=== PATIENT | male | born 2000 | race Caucasian/White ===

== ENCOUNTER 2020-09-27 00:13 | Emergency (ER) | payer SELFPAY ==
[2020-09-27 00:15] VITALS: BP 118/65; PULSE 96; RESP 16; TEMP 36.5; O2SAT 97; BMI 18.3
--- NOTE | 2020-09-27 00:25 | EX.ED.DYSGE1 ---
HPI History of Present Illness Chief Complaint: Foreign Body Informant: patient Onset/Context/Timing Onset: Hours (2) Context: Gradual Onset (after finished vomiting) Timing: Continuous Quality: FB sensation that is making it hard to breathe a little Location: right throat, above my gibson apple Current Severity: Moderate Maximum Severity: Moderate Worsened by: nothing Relieved by: nothing Associated Symptoms Associated Symptoms: none other than a little sob due to throat Narrative Narrative: Patient states he had a couple meals today, ate them without any difficulty, then about 2 hours ago he had about a 10-minute episode of profuse vomiting it was nonbilious nonbloody. Shortly after he finished vomiting, he felt better except he noticed foreign body sensation in his right throat that has persisted and he states he feels a little short of breath from it. He does not have any chest symptoms in his chest or his abdomen now. He does not feel nauseated anymore. Denies any abdominal pain when he was vomiting, no fevers or chills. He suspects it was due to something that he ate. He can swallow liquids now without any difficulty and he can manipulate the sensation when he is swallowing. PFSH PFSH no medical history Home Medications NK 09/27/20 [History Last Taken Unknown] Allergy/AdvReac Type Severity Reaction Status Date / Time No Known Allergies Allergy Verified 09/27/20 00:18 Surgical History History of appendectomy Social History Smoking Status: Current every day smoker tobacco type: cigarettes ROS ROS ED Constitutional Constitutional ED: Denies chills or fever(s) Eyes Eyes: Denies change in vision or diplopia ENT ENT ED: Reports as per HPI and sore throat; Denies rhinorrhea Cardiovascular Cardiovascular: Denies chest pain or palpitations Respiratory/Chest Respiratory/Chest: Denies cough Gastrointestinal Gastrointestinal: Denies abdominal pain, diarrhea, nausea or vomiting Genitourinary Genitourinary ED: Denies dysuria or hematuria Musculoskeletal Musculoskeletal: Denies back pain or neck pain Integumentary Denies abscess or rash Neurologic Neurologic: Denies headache(s), paresthesias or weakness Psychiatric Psychiatric: Denies anxiety or suicidal thoughts EXAM Physical Exam Const Vital Signs: 09/27/20 00:15 09/27/20 00:17 Temperature 97.7 F L Temperature Source Temporal Pulse Rate 96 Respiratory Rate 16 Respiratory Effort Normal Respiratory Pattern Normal Blood Pressure 118/65 Blood Pressure Mean 82 Pulse Ox 97 Oxygen Delivery Method Room Air Positive well nourished and well developed General Appearance ED: well developed and NAD HEENT Reports moist mucous membranes HEENT Narrative: No trismus. Posterior oropharynx mildly erythematous, there is prominence of the right palate teen tonsil and tonsillar pillar compared with the left, there is no exudates or abscess. Uvula midline. The posterior oropharynx is widely visible when the patient opens his mouth. No evidence of a foreign body. No tongue abnormality or sublingual fullness/abnormality. No stridor. Normal voice without hoarseness. normocephalic and atraumatic Nose: external nose normal and nares normal Eyes PERRL and EOMs intact bilaterally Neck full ROM, no lymphadenopathy and supple Neck Narrative: Nontender Resp normal respiratory effort and clear to auscultation bilaterally Cardio regular rate, regular rhythm and no murmurs Extremity normal to inspection General Extremety ED: Negative for edema or tenderness General Extremity: Negative for edema Neuro oriented x3, CN's II-XII intact bilaterally and no sensory deficits noted Sensorium / Orientation: awake and alert Motor Exam: strength 5/5 throughout Skin no rashes or lesions noted and no wounds MDM MDM MDM Narrative Medical decision making narrative: Given the history I have a very low suspicion of an actual foreign body in his laryngeal area, and my suspicion is that the patient had tonsil, vallecular, or other discomfort or inflammation that was giving him foreign body sensation due to vomiting acid. Therefore I screened him with soft tissue neck x-rays that actually were abnormal and look like he had a radiopaque foreign body near his epiglottis as shown below. Therefore I obtained a CT scan and prior to obtaining the scan I discussed this with the patient and he did still have symptoms even after a GI cocktail. He was comfortable and his airway was stable, with normal vital signs. He went for CT soft tissue neck, and upon getting the results I reviewed the films, I saw a radiopaque pinpoint sized area in the left posterior oropharynx/pharynx, I discussed this with the radiologist and he states it is likely a tonsillolith and it is on the contralateral side that the patient is experiencing symptoms on. He states there is no evidence of a foreign body. On reevaluation of the patient, he states spontaneously the symptoms have completely resolved and he thinks maybe he swallowed what ever was bothering him. Since he is asymptomatic, he is discharged home with appropriate precautions and we discussed reasons to return. Radiography Diagnostic Testing: Radiology Impression Soft Tissue Neck X-Ray 09/27/20 00:30 IMPRESSION: Sitting just on the epiglottis, there appears to be a questionable tiny linear metallic foreign body as above Electronically Signed: J Carlos Harper DO at 1:18 EDT Tel , Service support , Soft Tissue Neck CT 09/27/20 02:06 IMPRESSION: Normal unenhanced CT examination of the soft tissues of the neck. As suggested on plain film, there is NO evidence of foreign body near the epiglottis. Electronically Signed: J Carlos Harper DO at 2:49 EDT Tel , Service support , Discharge Plan Triage Chief Complaint: Foreign Body ED Provider: Jarod Mendoza Dx/Rx/DC Orders Clinical Impression: Foreign body of throat Instructions: ED Pharyngeal Foreign Body, Removed Prescriptions: No Action NK RF: 0 Primary Care Provider: Roman Hatfield Referrals: Roman Hatfield MD [Primary Care Provider] - As Needed Disposition Disposition: Home, self care Discharge Date/Time: 09/27/20 03:30
[2020-09-27] MEDS: Mag Hydrox/Al Hydrox/Simeth 30 ML UDC PO (00:29)
--- NOTE | 2020-09-27 00:30 | RAD_ITS ---
STUDY: X-RAY - SOFT TISSUE NECK REASON FOR EXAM: Male, 19 years old. FB sensation, sob TECHNIQUE: 2 view(s) of the neck were obtained. COMPARISON: None. FINDINGS: Normal visualized nasopharynx, oropharynx, hypopharynx. Sitting just on the epiglottis, there is a questionable tiny linear metallic foreign body measuring 2.6 mm. Normal epiglottis. Normal visualized subglottic tracheal air column. Normal prevertebral soft tissue structures. Normal visualized osseous structures. The soft tissue structures are unremarkable. RAD/Neck for Soft Tissue IMPRESSION: Sitting just on the epiglottis, there appears to be a questionable tiny linear metallic foreign body as above Electronically Signed: J Carlos Harper DO at 1:18 EDT Tel , Service support ,
--- NOTE | 2020-09-27 02:06 | CT_ITS ---
STUDY: CT SOFT TISSUE NECK WITHOUT CONTRAST REASON FOR EXAM: Male, 19 years old. fb RADIATION DOSAGE (If Supplied By Facility): CTDIvol = ( 14.75 ) mGy, DLP = ( 519.48 ) mGycm TECHNIQUE: The patient was scanned in a multi-detector CT scanner. High resolution transaxial imaging was performed without the administration of intravenous contrast material. Sagittal and coronal images were reconstructed. Individualized dose optimization techniques were used for this CT. COMPARISON: Plain film soft tissue neck earlier FINDINGS: Normal bilateral parotid glands. Normal bilateral heel boom operator spaces. Normal bilateral parapharyngeal spaces. Normal bilateral carotid spaces. Normal bilateral sublingual and submandibular glands and spaces. Normal visualized nasopharynx. Normal retropharyngeal space. Normal perivertebral space. Normal visualized bilateral faucial tonsils. The visualized tongue, tongue base and oropharynx are normal. The visualized cervical lymph nodes (levels I-) are within normal size limits, and maintain normal morphology. There is no demonstrated solid or cystic mass lesion. Normal epiglottis, bilateral vallecula and hypopharynx. The pre-epiglottic and paraglottic adipose spaces are normal. Normal visualized bilateral piriform sinuses, aryepiglottic folds, vocal cords, and arytenoid-cricoid articulations. Normal subglottic trachea. Normal bilateral lobes of the thyroid gland. Normal visualized pulmonary apices. Normal visualized paranasal sinuses. Normal visualized cervical spine. No evidence of foreign body CT/Soft Tissue Neck without Contr IMPRESSION: Normal unenhanced CT examination of the soft tissues of the neck. As suggested on plain film, there is NO evidence of foreign body near the epiglottis. Electronically Signed: J Carlos Harper DO at 2:49 EDT Tel , Service support ,
== END 2020-09-27 03:30 | disposition home or self-care (01) ==
PROVIDERS: Emergency Provider Emergency Medicine; PCP Family Medicine
DX: R09.89 Other specified symptoms and signs involving the circulatory and respiratory systems (principal); R06.02 Shortness of breath; F17.210 Nicotine dependence, cigarettes, uncomplicated
CPT/HCPCS: 70360; 70490; 99283

== ENCOUNTER 2023-06-24 21:44 | Emergency (ER) | payer OTHER, SELFPAY ==
[2023-06-24 21:47] VITALS: BP 104/79; PULSE 102; RESP 22; TEMP 38.8; O2SAT 98
--- NOTE | 2023-06-24 21:55 | EX.ED.DYSGE1 ---
HPI History of Present Illness Chief Complaint: Fever Detail of Chief Complaint: Temperature 104.3 ?F Informant: patient and spouse/S.O. Onset/Context/Timing Onset: Days (Onset of illness 2 to 3 days ago) Context: Sudden Onset Timing: Continuous and Waxes and wanes Quality: Flulike symptoms Location: Generalized and respiratory Current Severity: Mild Maximum Severity: Moderate Worsened by: Nothing Relieved by: Nothing Associated Symptoms Associated Symptoms: Per HPI narrative Narrative Narrative: Patient is a 22-year-old male. He does vape. He presents because of a temperature of 104.3 ?F at home. Axillary temperature was 101.9. Significant other suggested he come in. He does complain of mild headache. Denies photophobia, neck pain or neck stiffness. He does endorse mild congestion initially with rhinorrhea. He states he does have a sore throat when he coughs. His cough is nonproductive. He does endorse myalgias and arthralgias. He has had essentially no intake for the past 24 to 48 hours. He does endorse thirst, dry mouth and lightheadedness when he stands. Child is ill at home and tested positive for influenza type B. He does endorse nausea without vomiting or diarrhea. He denies abdominal pain. He denies rash. Prior similar symptoms: No Recent Illness/Hospitalization: No PFSH PFSH Medical History no medical history no medical history Home Medications NK 09/27/20 [History Last Taken Unknown] Allergy/AdvReac Type Severity Reaction Status Date / Time No Known Allergies Allergy Verified 06/24/23 21:47 Surgical History History of appendectomy Social History (Updated 06/24/23 @ 21:[address] Marco Lemus MD) household members: spouse and children Smoking Status: Current every day smoker tobacco type: cigarettes Electronic Cigarette Use: with nicotine substance use type: does not use ROS ROS ED Constitutional Constitutional ED: Reports chills, fever(s) and sweats; Denies subjective or weight loss Eyes Eyes: Denies blurry vision, change in vision or diplopia ENT ENT ED: Reports rhinorrhea and sore throat; Denies ear pain Cardiovascular Cardiovascular: Denies chest pain, orthopnea, palpitations or paroxysmal nocturnal dyspnea Respiratory/Chest Respiratory/Chest: Reports cough; Denies dyspnea, dyspnea on exertion, orthopnea, paroxysmal nocturnal dyspnea or sputum Gastrointestinal Gastrointestinal: Reports nausea; Denies abdominal pain, diarrhea, melena or vomiting Genitourinary Genitourinary ED: Reports other Details: Patient endorses decreased urine output. ; Denies dysuria, hematuria or urinary frequency Musculoskeletal Musculoskeletal: Reports arthralgias and myalgias; Denies back pain or neck pain Integumentary Denies rash Neurologic Neurologic: Reports headache(s) and weakness; Denies paresthesias Endocrine Endocrinology: Denies cold intolerance or heat intolerance Hematologic/Lymphatic Hematologic/Lymphatic: Reports systems reviewed and no addt'l complaints, except as documented EXAM Physical Exam Const Vital Signs: 06/24/23 21:47 06/24/23 21:54 06/24/23 23:00 Temperature 101.9 F H 100.9 F H Temperature Source Oral Oral Pulse Rate 102 H Respiratory Rate 22 H Respiratory Effort Normal Respiratory Pattern Normal Blood Pressure 104/79 Blood Pressure Mean 87 Pulse Ox 98 Oxygen Delivery Method Room Air Positive well nourished and well developed Constitutional Narrative: Patient appears ill but not toxic. General Appearance ED: well developed and pallor; Negative for cyanotic or diaphoretic HEENT Reports dry mucous membranes HEENT Narrative: Head is atraumatic and normocephalic. Ears normal. TMs normal. Nares patent with mild clear discharge noted. Posterior pharynx out erythema exudate. Uvula is midline. Mouth ED: Yes dry mucous membranes Mouth: dry mucous membranes Eyes PERRL and EOMs intact bilaterally General Eye ED: Negative for pale conjunctiva or scleral icterus Neck no lymphadenopathy, supple and no JVD Chest Wall inspection of chest normal and palpation of chest normal Resp normal respiratory effort and clear to auscultation bilaterally Cardio regular rhythm, S1 normal heart sound, S2 normal heart sound and no murmurs Rate: tachycardic GI normal to inspection, nondistended, normoactive bowel sounds, non-tender, non-distended and no masses; Negative for hepatosplenomegaly Back/Spine no CVA tenderness Extremity normal to inspection Extremity Narrative: There is no clubbing or cyanosis noted. General Extremety ED: Negative for edema or tenderness General Extremity: Negative for edema Neuro oriented x3, CN's II-XII intact bilaterally and no sensory deficits noted Sensorium / Orientation: alert Psych mental status grossly normal Skin no rashes or lesions noted, no wounds and skin turgor normal General Skin Exam: pallor; Negative for jaundice MDM MDM MDM Narrative Medical decision making narrative: Differential diagnosis is viral versus bacterial infection. 104.3 degree temperature and child that tested positive for influenza type B patient has influenza type B. Clinically he is dehydrated. Because he is nauseous will administer Zofran. Ibuprofen for his myalgias arthralgias and temperature of 101.9. He states he took Tylenol at approximately 1900. He does not have ibuprofen or Aleve at home. Since patient pulse ox is normal and there is no abnormal auscultatory findings oscitation over the chest x-ray was not obtained. In my opinion there is no need for rapid antigen since family member was tested and is positive for influenza type B. History & Record Review Additional record(s) reviewed:: Prior ED visit (Prior record in 2020 for minor respiratory complaint.) Rhythm Strip Rhythm Strip: Sinus Tach Rate: 105 Ectopy: None Treatment and Re-Evaluation :: Patient was reassessed at 2345. He feels better. He still has not urinated. Will have patient hydrate orally. Since he does not have a physician he was referred to Dr. Kaur. Discharge Plan Triage Chief Complaint: Fever ED Provider: Marco Lemus Dx/Rx/DC Orders Clinical Impression: Acute dehydration, Fever and chills, Type B influenza, Sinus tachycardia Instructions: ED Influenza (Adult) Prescriptions: No Action NK Primary Care Provider: Care Physician,No Primary Referrals: Roman Hatfield MD [Med Staff - User Interface Designer] - Ladi Kaur DO [Med Staff - Active Staff] - 1 Week if not improving Disposition Disposition: Home, Self Care
[2023-06-24] MEDS: 0.9% Normal Saline (1000mL) 1,000 ML 1000 ML IV (22:24)
[2023-06-24] MEDS: Ondansetron 4 MG/2 ML Vial IV (22:25)
[2023-06-24] MEDS: Ibuprofen 400 MG Tablet 800 MG PO (22:25)
--- OUTSIDE RECORDS SUMMARY | 2023-06-24 22:28 | XMS RPT_ITS | CCD ---
Author Name Unknown Address [address] [place] [address] Organization [facility] Care Team Providers Care Fisher Eel Spear Name Role Phone Unavailable Primary Care Provider Unavailabl e Medications Current Medications Medication Drug Class(es) Dates Sig (Normalized) Sig (Original) acetaminophen 500 mg oral tablet (1 source) Start: 12-18-2017 take 1 tablet by mouth every six hours as needed for pain acetaminophen (TYLENOL) 500 MG tablet Take 1 tablet by mouth every 6 hours as needed for Pain 30 tablet 0 12/18/2017 Active ibuprofen 600 mg oral tablet (2 sources) Nonsteroidal Anti-inflammatory Drug Start: 05-24-2020 take 1 tablet by mouth three times daily as needed for pain ibuprofen (ADVIL;MOTRIN) 600 MG tablet Take 1 tablet by mouth 3 times daily as needed for Pain 15 tablet 0 05/24/2020 Active Problems Active Problems Problem Classification Problem Date Documented Da te Episodic/Chronic Sprains and strains (1 source) Strain of back muscle; Translations: [Back strain, initial encounter] Episodic Past or Other Problems Problem Classification Problem Date Documented Date Episodic/Chronic Appendicitis and other appendiceal conditions (1 source) Acute appendicitis; Translations: [Acute appendicitis] Onset: 12-16-2017 12-16-2017 Episodic Residual codes; unclassified (1 source) Postoperative state; Translations: [Post-operative state] Onset: 01-02-2018 Resolved: 02-01-2018 02-01-2018 Results Test Name Value Interpretation Reference Range Facil ity Vital Signs Date Time Vital Sign Value Performing Clinician Aravind granger 05-23-2020 23:23-0500 BMI (Body Mass Index) 18.93 kg/m2 [facility] [place], [place] 05-23-2020 23:23-0500 Body Temperature 98.4 [degF] [facility] [place], [place] 05-23-2020 23:23-0500 Body weight 76.2 kg [place], [place] 05-23-2020 23:23-0500 BP Diastolic 87 mm[Hg] [place], [place] 05-23-2020 23:23-0500 BP Systolic 145 mm[Hg] [place] 05-23-2020 23:23-0500 Height 200.7 cm [place], [place] 05-23-2020 23:23-0500 Pulse (Heart Rate) 83 /min [facility] [place] [place] 05-23-2020 23:23-0500 Pulse Oximetry 94 % [place], [place] 05-23-2020 23:23-0500 Respiratory Rate 16 /min [place] Encounters Encounter Date Encounter Type Care Provider Facility Start: 05-23-2020 End: 05-24-2020 Emergency department patient visit Louie Lynn Work Phone: [facility] ED Procedures Date Procedure Procedure Detail Performing Clinician Start: 05-23-2020 Radex ribs uni w/posteroant ch minimum 3 views Louie Will Leah Work Phone: Plan of Treatment Date Care Activity Detail Author Start: 12-18-2019 Influenza vaccination Flu vaccine (# 1) [place], [place] Start: 2017 DTaP/Tdap/Td vaccine (1 - Tdap) DTaP/Tdap/Td vaccine (1 - Tdap) [place], [place] Start: 2013 HIV screening HIV screen [place], [place] Start: 2009 HPV vaccine (1 - Mal e 2-dose series) HPV vaccine (1 - Male 2-dose series) [place], [place] Start: 2004 Pneumococcal 0-64 ye ars Vaccine (1 of 1 - PPSV23) Pneumococcal 0-64 years Vaccine (1 of 1 - PPSV23) [place], [place] Start: 10-08-1999 Varicella vaccine (1 of 2 - 2-dose childhood series) Varicella vaccine (1 of 2 - 2-dose childhood series) [place], [place] Start: 1998 Hepatitis C screening Hepatitis C sc bartn [place] Payers Date Payer Category Payer Unknown BCBS BCBS - [place] P PO [id number] 2019-Present [address] [place] [address] [id number] Social History Date Type Detail Facility Start: 05-23-2020 Tobacco smoking stat us [facility] Current every day smoker [place], [place] History of tobacco use Cigarette Smoker M [place], [place] Start: 05-23-2020 Cigarettes smoked current (pack per day) - Reported [place] Start: 05-23-2020 Tobacco use and exposure Never used [place] Start: 05-23-2020 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) [place], [place] Sex Assigned At Not on file [place] Exposure to SARS-CoV -2 (event) Not sure [place] Summary Purpose Family History No Family History Records FoundNo Family History Records FoundNo Family History Records FoundNo Family History Records Found Advance Directives No Advanced Directives Records FoundDocuments on File Type Date Recorded 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 Ice 15 minutes every 4-6 hours. Return if any problems or concerns. * Attachments The following attachments cannot be sent through Care Everywhere. * Back: Strain (Luxembourgish) documented in this encounter Assessments Diagnosis Back strain, initial encounter- Primary Additional Source Comments (unrecognized sect ion and content) No Status Records FoundNo Status Records FoundNo Status Records FoundNo Status Records Found INFORMATION SOURCE (unrecogn ized section and content) DATE CREATED AUTHOR AUTHOR'S ORGANIZ ATION 06/01/2019 [facility] DATE CREATED AUTHOR AUTHOR'S ORGANTREMAYNE ATION 06/21/2019 [facility] DATE CREATED AUTHOR AUTHOR'S ORGANTREMAYNE ATION 05/27/2020 [facility] Reason for Visit (unrecogniz ed section and content) Ordered Prescriptions (unrec ognized section and content) FOR RECORDS PERTAINING TO PATIENTS WHO ARE OR HAVE BEEN ENROLLED IN A CHEMICAL DEPENDENCY/SUBSTANCEABUSE PROGRAM, SOME INFORMATION MAY BE OMITTED. This clinical summary was aggregated from multiple sources. Caution should be exercised in using it in the provision of clinical care. This summary normalizes information from multiple sources, and as a consequence, information in this document may materially change the coding, format and clinical context of patient data. In addition, data may be omitted in some cases. CLINICAL DECISIONS SHOULD BE BASED ON THE PRIMARY CLINICAL RECORDS. [facility]. provides no warranty or guarantee of the accuracy or completeness of information in this document.
[2023-06-24 23:00] VITALS: TEMP 38.3
[2023-06-25 00:09] VITALS: BP 120/78; PULSE 89; RESP 12; TEMP 36.7; O2SAT 100
== END 2023-06-25 00:10 | disposition home or self-care (01) ==
PROVIDERS: Emergency Provider Emergency Medicine; Visit Provider Emergency Medicine
DX: J10.1 Influenza due to other identified influenza virus with other respiratory manifestations (principal); E86.0 Dehydration; R00.0 Tachycardia, unspecified; F17.210 Nicotine dependence, cigarettes, uncomplicated; F17.290 Nicotine dependence, other tobacco product, uncomplicated
CPT/HCPCS: 96361; 96374; 99282; J7030; A4216; J2405

== ENCOUNTER 2024-07-01 20:31 | Emergency (ER) | payer SELFPAY ==
[2024-07-01 20:33] VITALS: BP 112/67; PULSE 85; RESP 18; TEMP 36.2; O2SAT 97; BMI 20.5
--- NOTE | 2024-07-01 20:41 | EX.ED.UPPERE ---
HPI <Dr. Jeffery Villafuerte, - Last Filed: 07/01/24 21:14> History of Present Illness Chief Complaint: Upper Extremity Injury <LUANNE Delacruz - Last Filed: 07/01/24 21:04> Narrative Narrative: Patient is a 23-year-old male with no significant medical history, last tetanus vaccination was 1 month ago. 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 Patient states that he tried to get it out however he is unsure if he did. Now is more swollen, red is here for evaluation [facility] <Dr. Jeffery Villafuerte, DO - Last Filed: 07/01/24 21:14> [facility] Medical History (Updated 07/01/24 @ 21:03 by LUANNE Delacruz) ADHD Home Medications ?Medication ?Instructions ?Recorded ?Last Taken ?Type NK 09/27/20 Unknown History cephalexin 500 mg capsule 500 mg PO Q6 #40 CAPSULES 07/01/24 Unknown Rx Allergy/AdvReac Type Severity Reaction Status Date / Time No Known Allergies Allergy Verified 07/01/24 20:33 Surgical History History of appendectomy Social History (Updated 06/24/23 @ 21:[address] Marco Lemus MD) household members: spouse and children Smoking Status: Current every day smoker tobacco type: e-cigarettes Electronic Cigarette Use: with nicotine substance use type: does not use ROS <LUANNE Delacruz - Last Filed: 07/01/24 21:04> ROS ED ROS Narrative Constitutional: Negative for fever, chills, weight loss, weakness Eyes: Negative for vision loss, vision change, double vision ENT: Negative for any sore throat, ear pain, congestion Cardiovascular: Negative for any chest pain, tightness, palpitations Respiratory: Negative for any cough, sputum production, hemoptysis, dyspnea, dyspnea on exertion, orthopnea Gastrointestinal: Negative for any abdominal pain, nausea, vomiting, diarrhea, constipation, blood in stool, blood in vomit : Negative for any urinary frequency, dysuria, retention, blood in urine Muscle skeletal: Negative for any neck pain, back pain. Positive right thumb pain Neurological: Negative for any headache, syncope, dizziness. Skin: Negative for any rashes, itching, abrasions, lacerations. Positive for swelling, erythema to the right thumb Psychiatric: Negative for any depression, anxiety, stress, suicidal ideation, homicidal ideation Hematologic: Negative for any excessive bruising, easy bleeding EXAM <Dr. Jeffery Villafuerte, - Last Filed: 07/01/24 21:14> Physical Exam Const Vital Signs: 07/01/24 20:33 Temperature 97.2 F L Temperature Source Temporal Pulse Rate 85 Respiratory Rate 18 Blood Pressure 112/67 Blood Pressure Mean 82 Pulse Ox 97 Oxygen Delivery Method Room Air <Manoj RuedaLUANNE bhatti - Last Filed: 07/01/24 21:04> Physical Exam Narrative Exam Narrative: Vital signs reviewed. Extremities: No peripheral edema, no signs of gross trauma or deformity. Active full range of motion of all extremities. Patient does have what appears to be a small little abscess to the pad of the right thumb. There is no foreign body noted on initial evaluation. Patient has no patient is full range of motion. +2 radial pulse Neuro: Cranial nerves II through XII intact, no focal neurological deficits. Skin: Clean dry and intact with no rash, purpura, petechiae, vesicles or pustules. Backs/flank: No CVA tenderness, no midline spinal tenderness, no deformity. Psych: Normal mood and affect. No SI, HI or acute psychosis. MDM <Dr. Jeffery Villafuerte, DO - Last Filed: 07/01/24 21:14> [facility] MDM Narrative Medical decision making narrative: I have personally performed a face to face assessment of the patient and have reviewed the WOLF Note. I performed a substantive portion of the visit including all aspects of the following. My alarcon findings include: History: Patient presents with redness and swelling to the pad of the right thumb. Patient states he had a metallic splinter into his thumb a couple days ago. Patient states he was able to pull out some of the metal fragment. Patient states he has some increased redness and swelling over the area. Patient denies any paresthesias or weakness. Patient denies any fevers or chills. Exam: Vital signs are stable. Patient is afebrile. Patient is in no acute distress. Skin is warm and dry. There is some erythema and edema over the volar aspect of the proximal fortune of the distal phalanx of the right thumb. There is minimal drainage. There is no foreign body noted. There is good range of motion of the IP and MP joints of the right thumb. Sensation was intact to light touch in all digits. Capillary refill was less than 2 seconds in all digits. Medical Decision Making: Differential diagnosis includes abscess, retained foreign body, and cellulitis. X-rays of the right thumb will be obtained to assess for retained foreign body. Patient was given a dose of Keflex. X-rays of the right thumb were obtained. There are 3 views. On my independent interpretation, there is no radiopaque foreign body. There is no acute fracture. There is some soft tissue swelling noted. Radiologist also interpreted the x-rays and agrees. The pad of the right thumb was cleaned with chlorhexidine. A small incision was made using the tip of a 18-gauge needle. This was done by the WOLF under my supervision. Patient was given a prescription for Keflex. Patient was instructed to use warm compresses to the area. Patient was instructed to follow-up with his primary care physician in 5 to 7 days. Patient understood and was agreeable with the plan. All questions were answered. <LUANNE Delacruz - Last Filed: 07/01/24 21:04> [facility] Treatment and Re-Evaluation Narrative: Differential diagnosis includes however is not limited to: Foreign body, abscess formation, cellulitis Patient appears generally well, vital signs are stable, patient is nontoxic-appearing. Presenting to the emergency department with complaints of concern for foreign body, infection to the right thumb. X-rays will be obtained. All radiologic examinations were read, reviewed by the emergency department attending. From these reads, a plan of care will be put in place. Patient's x-ray showed no acute foreign body. I was able to cleanse the area with alcohol. I was able to use a 18-gauge needle, was able to take off the roof of the swelling, where it came to ahead. I was able to get small amount of yellow discharge. Patient will keep using warm compresses, soapy water for cleansing. Patient placed on Keflex 4 times a day for 10 days. Struck to return for any worsening symptoms. Stable for discharge. Discharge Plan Triage Chief Complaint: Upper Extremity Injury ED Midlevel Provider: Manoj Ramon ED Provider: Jeffery Villafuerte Dx/Rx/DC Orders Clinical Impression: Cellulitis of right thumb Instructions: ED Cellulitis Prescriptions: New cephalexin 500 mg capsule 500 mg PO Q6 Qty: 40 0RF No Action NK Primary Care Provider: Care Physician,No Primary Referrals: Care Physician,No Primary [Primary Care Provider] - Activity Restrictions/Additional Instructions: Please ensure use of warm compress. Clean with soapy water. The antibiotics are taken until the bottle is empty. Return for any worsening redness, fever chills nausea or vomiting. Print Language: Japanese Disposition Disposition: Home, Self Care
--- NOTE | 2024-07-01 20:50 | RAD_ITS ---
PROCEDURE: FINGER(S) MIN 2 VIEWS REASON FOR EXAM: SPLINTER RIGHT THUMB TECHNIQUE: 3 view(s) of the right 1st ray, thumb COMPARISON: None FINDINGS: No radiopaque foreign body identified. The osseous structures appear within limits. Joint spaces appear within limits. RAD/Finger(s) Min 2 Views IMPRESSION: No radiopaque foreign body identified. Reading Location: [id number]
[2024-07-01] MEDS: Cephalexin 250 MG Capsule 500 MG PO (20:56)
== END 2024-07-01 21:17 | disposition home or self-care (01) ==
PROVIDERS: Emergency Provider Emergency Medicine; Referring Provider Emergency Medicine; Visit Provider Emergency Medicine
DX: L03.011 Cellulitis of right finger (principal); F17.290 Nicotine dependence, other tobacco product, uncomplicated; Z90.49 Acquired absence of other specified parts of digestive tract
CPT/HCPCS: 73140; 99283

== ENCOUNTER 2024-07-04 09:47 | Emergency (ER) | payer SELFPAY ==
[2024-07-04 09:48] VITALS: BP 102/57; PULSE 74; RESP 18; TEMP 37.2; O2SAT 98; BMI 18.3
[2024-07-04] MEDS: Ondansetron ODT 4 MG Tablet PO (10:35)
--- NOTE | 2024-07-04 10:56 | EDS_ITS ---
HPI History of Present Illness Chief Complaint: General Illness Narrative Narrative: Patient is a 23-year-old male with a past medical history of ADHD who presented to the emergency department the chief complaint of nausea vomiting diarrhea. Patient states that his symptoms started yesterday and he was up all night with vomiting and diarrhea. He states that his kids have been ill recently. Patient states that he has had his appendix taken out but denies any other surgeries. Denies abdominal pain. Patient states that he needs a work note [facility] Medical History ADHD Home Medications ?Medication ?Instructions ?Recorded ?Last Taken ?Type cephalexin 500 mg capsule 500 mg PO Q6 #40 CAPSULES Unknown Rx dicyclomine 20 mg tablet 20 mg PO TID PRN abdominal p ain 07/04/24 Unknown Rx #20 tabs ondansetron 4 mg disintegrating 4 mg PO Q6H PRN nausea and 07/04/24 Unknown Rx tablet vomiting #20 tabs Allergy/AdvReac Type Severity Reaction Status Date / Time No Known Allergies Allergy Verified 07/04/24 09:48 Surgical History History of appendectomy Social History household members: spouse and children Smoking Status: Current every day smoker tobacco type: e-cigarettes Electronic Cigarette Use: with nicotine substance use type: does not use ROS ROS ED ROS Narrative Constitutional: Denies any fevers, chills, headaches Eyes: Denies change in vision double vision blurry vision Cardiovascular: Denies chest pain or palpitations Respiratory: Denies coughing wheezing shortness of breath Abdomen: Complains of nausea vomiting diarrhea as noted above denies abdominal pain Neurological: Denies any numbness, discontinuing Musculoskeletal: Denies back pain Skin: Denies rashes or lesions EXAM Physical Exam Narrative Exam Narrative: General: Patient lying in bed rest comfortably. In acute distress Head: Atraumatic, normocephalic Eyes: PERRL bilateral, EOMI bilateral, no conjunctival injection noted Neck: Soft, supple, trachea midline Cardiovascular: Regular rate and rhythm no murmurs gallops rubs noted Respiratory: Clear to auscultation bilaterally Abdomen: Soft, nondistended, nontender to palpation Neurological: Patient follow commands knew that he was at [facility] year is 2024 Skin: Warm, dry, intact Const Vital Signs: 07/04/24 09:48 07/04/24 10:47 07/04/24 11:47 Temperature 98.9 F Temperature Source Oral Pulse Rate 74 78 Respiratory Rate 18 16 Respiratory Effort Normal Respiratory Pattern Normal Blood Pressure 102/57 L 118/78 Blood Pressure Mean 72 91 Pulse Ox 98 98 Oxygen Delivery Method Room Air Room Air MDM MDM MDM Narrative Medical decision making narrative: Patient is a 23-year-old male who presents to the emerged part with chief complaint nausea vomiting diarrhea since yesterday. On the differential diagnosis includes but not limited to COVID, flu, viral gastroenteritis secondary to other viral illness. Once workup is obtained reviewed he will be reevaluated. Patient be given ODT Zofran. Patient tested negative for COVID flu RSV. On reevaluation the patient he is feeling much better would like to go home at this point time. Patient will be provided work note, prescriptions for Zofran and Bentyl. He is advised to start bland diet and advance as tolerated. He is advised to return with worsening symptoms or concerns. He was given a physician to follow-up with as well. He is agreeable to plan all question concerns answered he is discharged home in stable condition. Discharge Plan Triage Chief Complaint: General Illness ED Provider: Seamus Ansari Dx/Rx/DC Orders Clinical Impression: Nausea & vomiting, Diarrhea Prescriptions: New ondansetron 4 mg tablet,disintegrating 4 mg PO Q6H PRN (Reason: nausea and vomiting) Qty: 20 0RF dicyclomine 20 mg tablet 20 mg PO TID PRN (Reason: abdominal pain) Qty: 20 0RF No Action cephalexin 500 mg capsule 500 mg PO Q6 Qty: 40 0RF Primary Care Provider: Care Physician,No Primary Referrals: Care Physician,No Primary [Primary Care Provider] - Nabila Rodriguez, [employer] [[facility]] - Activity Restrictions/Additional Instructions: You tested negative for COVID flu and RSV. Prescriptions were sent to your pharmacy use them as prescribed. Start with a bland diet and advance as tolerated. You likely have a viral illness causing your symptoms. Return with worsening symptoms or concerns otherwise follow-up with the doctor you referred to. Print Language: Czech Disposition Disposition: Home, Self Care
[2024-07-04 11:47] VITALS: BP 118/78; PULSE 78; RESP 16; O2SAT 98
== END 2024-07-04 12:45 | disposition home or self-care (01) ==
PROVIDERS: Emergency Provider Emergency Medicine; Visit Provider Emergency Medicine
DX: R19.7 Diarrhea, unspecified (principal); R11.2 Nausea with vomiting, unspecified; Z90.49 Acquired absence of other specified parts of digestive tract; F17.290 Nicotine dependence, other tobacco product, uncomplicated
CPT/HCPCS: 87631; 99282

== ENCOUNTER 2024-10-25 13:01 | Emergency (ER) | payer SELFPAY ==
[2024-10-25 13:01] VITALS: BP 122/80; PULSE 104; RESP 18; TEMP 36.1; O2SAT 99; BMI 19.6
--- NOTE | 2024-10-25 15:47 | ED.RN ---
Looked for pt with no response
== END 2024-10-25 15:47 | disposition left against medical advice (07) ==
LOC: ED 15:51
DX: Z53.21 Procedure and treatment not carried out due to patient leaving prior to being seen by health care provider (principal)

== ENCOUNTER 2025-01-08 03:31 | Emergency (ER) | payer SELFPAY ==
[2025-01-08 03:32] VITALS: BP 116/74; PULSE 54; RESP 16; TEMP 36.8; O2SAT 99; BMI 19.6
--- NOTE | 2025-01-08 04:00 | RAD_ITS ---
PROCEDURE: NECK FOR SOFT TISSUE 01/08/2025 REASON FOR EXAM: PAIN TECHNIQUE: Procedure Code: RADNE Modality: DX Procedure: NECK FOR SOFT TISSUE COMPARISON: September 27, 2020 FINDINGS: Vertebral body height and alignment are maintained. Disc height is maintained. Prevertebral soft tissues are within normal limits. The airway and epiglottis are normal in appearance. There is no visible radiopaque foreign body. There is no visible atherosclerosis. RAD/Neck for Soft Tissue IMPRESSION: Negative neck for soft tissues. Reading Location: [facility]
[2025-01-08] MEDS: Lidocaine 2% Viscous15 ML UDC 15 ML PO (04:01)
--- OUTSIDE RECORDS SUMMARY | 2025-01-08 04:09 | XMS RPT_ITS | CCD ---
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 Jeffery Villafuerte DO Referring Provider Dr. Jeffery Villafuerte DO Emergency Provider Dr. Seamus Ansari DO Emergency Provider Dr. Jeffery Villafuerte DO Attending Provider Dr. Seamus Ansari DO Attending Provider Provider, Ed Physician Emergency Provider Unavai lable Unavailable Primary Care Provider Unavailabl e PHYSICIAN, NONE Primary Care Physician Unavailab CRYSTAL Dow Attending Unavailable PHYSICIAN, NONE Primary Care Unavailable OTTONIEL ALEXIS DO Attending Unavailable PHYSICIAN, NONE Primary Care Unavailable OTTONIEL ALEXIS DO Attending Unavailable Jeffery Villafuerte Referring Unavailable Care Physician, No Primary Primary Care Unava ilable Jeffery Villafuerte Attending Unavailable Care Physician, No Primary Primary Care Unava ilable Seamus Ansari Attending Unavailable Provider, Ed Physician Attending Unavailab le Care Physician, No Primary Primary Care Unava ilable Allergies Allergy Classification Reported Allergen(s) Allergy Type Date of Onset Reaction(s) Facility (1 source) Bee pollen Drug Allergy 10-25-2024 Swelling [facility] (1 source) Bee pollen Drug allergy (disorder) 10-25-2024 [facility] Repository Medications Current Medications Medication Drug Class(es) Dates Sig (Normalized) Sig (Original) acetaminophen 500 mg oral tablet (1 source) Start: 12-18-2017 take 1 tablet by mouth every six hours as needed for pain acetaminophen (TYLENOL) 500 MG tablet Take 1 tablet by mouth every 6 hours as needed for Pain 30 tablet 0 12/18/2017 Active cephalexin 500 mg oral capsule (3 sources) Cephalosporin Antibacterial Start: 03-16-2025 take 1 capsule by mouth every six hours Cephalexin 500 mg capsule Active 500 mg PO EVERY 6 HOURS 40 0 July 01, 2024 12:00am dicyclomine hydrochloride 20 mg oral tablet (2 sources) Anticholinergic Start: 07-04-2024 take 1 tablet by mouth three times daily as needed for pain Dicyclomine 20 mg tablet Active 20 mg PO THREE TIMES A DAY as needed for abdominal pain July 04, 2024 12:35pm ibuprofen 600 mg oral tablet (2 sources) Nonsteroidal Anti-inflammatory Drug Start: 05-24-2020 take 1 tablet by mouth three times daily as needed for pain ibuprofen (ADVIL;MOTRIN) 600 MG tablet Take 1 tablet by mouth 3 times daily as needed for Pain 15 tablet 0 05/24/2020 Active Start: 05-23-2020 ibuprofen (ADV IL;MOTRIN) tablet 600 mg naproxen 500 mg oral tablet (2 sources) Nonsteroidal Anti-inflammatory Drug Start: 10-25-2024 End: 11-01-2024 naproxen 500 mg oral tablet Dose : 500 mg = 1 tab(s), Oral, BIDM, X 7 day(s), # 14 tab(s), 0 Refill(s), 11/01/24 8:17:00 PM EDT Start Date: 10/25/24 Stop Date: 11/01/24 Status: Ordered Quantity: 14.0 Unit: tab(s) Repeat number: 1 [place] (Nk) (1 source) Start: 09-27-2020 [place] (Nk) Active September 27, 2020 12:00am ondansetron 4 mg disintegrating oral tablet (3 sources) Serotonin-3 Receptor Antagonist Start: 07-04-2024 take 1 tablet by mouth every six hours as needed for nausea and vomiting Ondansetron 4 mg tablet,disintegr ating Active 4 mg PO EVERY 6 HOURS as needed for nausea and vomiting July 04, 2024 12:00am Start: 06-20-2019 take 1 tablet by jacquelyn th every four hours as needed ondansetron orally disintegrating (ZOFRAN ODT) 4 mg disintegrating tablet Take 1 tablet by mouth every 4 hours as needed for Nausea/Vomiting. 10 tablet 06/20/2019 Active Problems Active Problems Problem Classification Problem Date Documented Da te Episodic/Chronic Cardiac dysrhythmias (4 sources) Sinus tachycardia; Translations: [Tachycardia, unspecified] 06-24-2023 Episodic Fever of unknown origin (4 sources) Fever with chills; Translations: [Fever, unspecified] 06-24-2023 Episodic Fluid and electrolyte disorders (4 sources) Dehydration; Translations: [Dehydration] 06-24-2023 Episodic Influenza (4 sources) Influenza due to Influenza B virus; Translations: [Influenza due to other identified influenza virus with other respiratory manifestations] 06-24-2023 Episodic Nausea and vomiting (2 sources) Nausea and vomiting; Translations: [Nausea with vomiting, unspecified] 07-04-2024 Episodic Other connective tissue disease (1 source) Pain in bilateral legs; Translations: [Pain in right leg] 10-25-2024 Episodic Other connective tissue disease (1 source) Pain in lower limb; Translations: [Pain in leg, unspecified] 10-25-2024 Episodic Other connective tissue disease (1 source) Muscle weakness; Translations: [Muscle weakness (generalized)] 10-25-2024 Episodic Other connective tissue disease (1 source) Pain of right lower leg; Translations: [Pain in right lower leg] Onset: 10-25-2024 Episodic Other connective tissue disease (4 sources) Pain in right lower leg; Translations: [Pain in right lower leg] Onset: 10-25-2024 Episodic Other connective tissue disease (1 source) Pain in left lower leg; Translations: [Pain in left lower leg] Onset: 10-26-2024 Episodic Other gastrointestinal disorders (2 sources) Diarrhea; Translations: [Diarrhea, unspecified] 07-04-2024 Episodic Other injuries and conditions due to external causes (4 sources) Foreign body in pharynx; Translations: [Unspecified foreign body in pharynx causing other injury, initial encounter] 09-27-2020 Episodic Other nervous system disorders (1 source) Abnormal gait; Translations: [Unspecified abnormalities of gait and mobility] 10-25-2024 Episodic Residual codes; unclassified (1 source) Localized edema; Translations: [Localized edema] Onset: 10-26-2024 Episodic Residual codes; unclassified (1 source) Procedure and treatment not carried out due to patient leaving prior to being seen by health care provider; Translations: [Procedure and treatment not carried out due to patient leaving prior to being seen by health care provider] Onset: 10-31-2024 Episodic Sprains and strains (1 source) Strain of back muscle; Translations: [Back strain, initial encounter] Episodic Past or Other Problems Problem Classification Problem Date Documented Da te Episodic/Chronic Appendicitis and other appendiceal conditions (1 source) Acute appendicitis; Translations: [Acute appendicitis] Onset: 12-16-2017 12-16-2017 Episodic Other gastrointestinal disorders (1 source) Diarrhea, unspecified; Translations: [Diarrhea, unspecified] Onset: 07-13-2024 Episodic Residual codes; unclassified (1 source) Postoperative state; Translations: [Post-operative state] Onset: 01-02-2018 Resolved: 02-01-2018 02-01-2018 Skin and subcutaneous tissue infections (4 sources) Cellulitis of right thumb; Translations: [Cellulitis of right finger] Onset: 07-11-2024 07-01-2024 Episodic Results Test Name Value Interpretation Reference Range Facility [facility] 10-25-2024 CNOV Office Visit ([facility]OU[facility]) MITCHELL CHAIREZ ([id number]) 2000 M Date Time Provider Department 10/25/24 4:45 PM CRYSTAL ZAIDI During your visit today, we recorded the following information about you: Temperature Pulse Respiration Blood pressure 98.7 degrees 87/minute 18/minute 95/64 Weight 79.5 kg Crystal Zaidi APRN.CNP 10/25/2024 5:11 PM Signed [facility] Subjective Mitchell Nunez Mihaela is a 24 year old male. Patient presents with: Pain: Bilateral lower legs x1 week, L worse, denies injury HPI Bilateral Leg Pain: - Onset last , progressively worsening. - Severe pain in the right leg, described as shooting pain from the front of the leg to the hip. - Right leg has almost given out three times today; struggling to walk. - Left leg pain is less severe, localized to the front of the leg and tender to touch. - Denies swelling in either leg. - No relief from ibuprofen or muscle relaxers. - Denies known trauma or injury. - Works at [employer] in [place], walking on uneven ground for the past month. - Has new boots but does not wear them often; same type as previous boots. - No significant past medical history; not on any daily medications. - Visited [place] [facility] today around noon but left after waiting for two hours. No past medical history on file. PAST SURGICAL HISTORY Procedure Laterality Date APPENDECTOMY HX ALLERGIES Patient has no known allergies. MEDICATIONS ondansetron orally disintegrating (ZOFRAN ODT) 4 mg disintegrating tablet Take 1 tablet by mouth every 4 hours as needed for Nausea/Vomiting. (Patient not taking: Reported on 10/25/2024) No family history on file. Social History Tobacco Use Smoking status: Every Day Smokeless tobacco: Never Vaping Use Vaping status: Former Substance Use Topics Alcohol use: Not Currently Drug use: Not Currently Review of Systems Musculoskeletal: (+) bilateral lower extremity pain radiating to hip, (+) anterior lower leg tenderness, (+) leg weakness with episodes of giving way, (+) difficulty walking, (-) lower extremity swelling Objective BP 95/64 Pulse 87 Temp 37.1 ?C (98.7 ?F) Resp 18 Wt 79.5 kg (175 lb 4.3 oz) SpO2 100% BMI 19.74 kg/m? Physical Exam General: No acute distress. MSK/Ext: Bilateral lower extremity tenderness to palpation, more severe on the right; no swelling noted. { 1. Leg pain, bilateral (M79.604) 2. Pain of lower extremity, unspecified laterality (M79.606) - Severe pain in both legs, more pronounced in the right leg, with tenderness to palpation and pain radiating to the hip. - No visible swelling or history of trauma. - Differential diagnoses include electrolyte imbalances, rhabdomyolysis, and dehydration. - Referred to the emergency room for further evaluation, including stat lab work to assess kidney function and rule out rhabdomyolysis. 3. Unspecified abnormalities of gait and mobility (R26.9) 4. Muscle weakness (generalized) (M62.81) - Right leg has given out multiple times today, causing difficulty with ambulation. - Advised immediate evaluation in the emergency room to determine underlying cause. and Recording using ambient AI software for draft documentation of the visit was discussed with the patient/authorized medical collections representative; all questions welcomed and answered. Patient/authorized medical collections representative agreed to proceed MDM Procedures Allergies As of Date: 10/25/2024 (No Known Allergies) Date Reviewed: 10/25/2024 Reviewed by: Montserrat Lizarraga MA - Fully Assessed Reason for Visit: Pain [78] Cmt: Bilateral lower legs x1 week, L worse, denies injury Primary Visit Diagnosis:Leg pain, bilateral [M79.604, M79.605] Other Visit Diagnoses:Unspecified abnormalities of gait and mobility [R26.9] Pain of lower extremity, unspecified laterality [M79.606] Muscle weakness (generalized) [M62.81] Prescriptions as of 10/25/2024 - ondansetron orally disintegrating (ZOFRAN ODT) 4 mg disintegrating tablet Take 1 tablet by mouth every 4 hours as needed for Nausea/Vomiting. Problem List As Of Date: 10/25/2024 (None) Encounter Status:Closed by CRYSTAL ZAIDI on 10/25/24 Normal [facility] Emergency Department Summary on 07-04-2024 Emergency Department Summary [facility] Medical Records Department [address] [place] [id number] Emergency Department Summary 07/04/24 MR#: [id number] Acct: [id number] Name: MITCHELL CHAIREZ Rep #: [id number] : 2000 23 From: Seamus Ansari DO PCP: Care Physician,No Primary Status:REG ER Location: ED HPI History of Present Illness Chief Complaint: General Illness Narrative Narrative: Patient is a 23-year-old male with a past medical history of ADHD who presented to the emergency department the chief complaint of nausea vomiting diarrhea. Patient states that his symptoms started yesterday and he was up all night with vomiting and diarrhea. He states that his kids have been ill recently. Patient states that he has had his appendix taken out but denies any other surgeries. Denies abdominal pain. Patient states that he needs a work note [facility] Medical History ADHD Home Medications ???Medication ???Instructions ???Recorded ???Last Taken ???Type cephalexin 500 mg capsule 500 mg PO Q6 #40 CAPSULES 07/01/24 Unknown Rx dicyclomine 20 mg tablet 20 mg PO TID PRN abdominal pain Unknown Rx #20 tabs ondansetron 4 mg disintegrating 4 mg PO Q6H PRN nausea and 5 Unknown Rx tablet vomiting #20 tabs Allergy/AdvReac Type Severity Reaction Status Date / Time No Known Allergies Allergy Verified 07/04/24 09:48 Surgical History History of appendectomy Social History household members: spouse and children Smoking Status: Current every day smoker tobacco type: e-cigarettes Electronic Cigarette Use: with nicotine substance use type: does not use ROS ROS ED ROS Narrative Constitutional: Denies any fevers, chills, headaches Eyes: Denies change in vision double vision blurry vision Cardiovascular: Denies chest pain or palpitations Respiratory: Denies coughing wheezing shortness of breath Abdomen: Complains of nausea vomiting diarrhea as noted above denies abdominal pain Neurological: Denies any numbness, discontinuing Musculoskeletal: Denies back pain Skin: Denies rashes or lesions EXAM Physical Exam Narrative Exam Narrative: General: Patient lying in bed rest comfortably. In acute distress Head: Atraumatic, normocephalic Eyes: PERRL bilateral, EOMI bilateral, no conjunctival injection noted Neck: Soft, supple, trachea midline Cardiovascular: Regular rate and rhythm no murmurs gallops rubs noted Respiratory: Clear to auscultation bilaterally Abdomen: Soft, nondistended, nontender to palpation Neurological: Patient follow commands knew that he was at [facility] year is 2024 Skin: Warm, dry, intact Const Vital Signs: 07/04/24 09:48 07/04/24 10:47 07/04/24 11:47 Temperature 98.9 F Temperature Source Oral Pulse Rate 74 78 Respiratory Rate 18 16 Respiratory Effort Normal Respiratory Pattern Normal Blood Pressure 102/57 L 118/78 Blood Pressure Mean 72 91 Pulse Ox 98 98 Oxygen Delivery Method Room Air Room Air MDM MDM MDM Narrative Medical decision making narrative: Patient is a 23-year-old male who presents to the emerged part with chief complaint nausea vomiting diarrhea since yesterday. On the differential diagnosis includes but not limited to COVID, flu, viral gastroenteritis secondary to other viral illness. Once workup is obtained reviewed he will be reevaluated. Patient be given ODT Zofran. Patient tested negative for COVID flu RSV. On reevaluation the patient he is feeling much better would like to go home at this point time. Patient will be provided work note, prescriptions for Zofran and Bentyl. He is advised to start bland diet and advance as tolerated. He is advised to return with worsening symptoms or concerns. He was given a physician to follow-up with as well. He is agreeable to plan all question concerns answered he is discharged home in stable condition. Discharge Plan Triage Chief Complaint: General Illness ED Provider: Seamus Ansari Dx/Rx/DC Orders Clinical Impression: Nausea vomiting, Diarrhea Prescriptions: New ondansetron 4 mg tablet,disintegrating 4 mg PO Q6H PRN (Reason: nausea and vomiting) Qty: 20 0RF dicyclomine 20 mg tablet 20 mg PO TID PRN (Reason: abdominal pain) Qty: 20 0RF No Action cephalexin 500 mg capsule 500 mg PO Q6 Qty: 40 0RF Primary Care Provider: Care Physician,No Primary Referrals: Care Physician,No Primary [Primary Care Provider] - Crystal Rodriguez, [facility] [[facility]] - Activity Restrictions/Additiona l Instructions: You tested negative for COVID flu and RSV. Prescriptions were sent to your pharmacy use them as prescribed (more content not included)... Normal [facility] Influenza virus A and B and SARS-CoV-2 (COVID-19) and Respiratory syncytial virus RNAOrdered By: Seamus Ansari on 07-04-2024 SARS-CoV-2 (COVID-19) RNA JAEL+probe Ql (Unsp spec) [facility] M100.678on 07-04-2024 M100.678 Pending SARS-CoV-2 (COVID 19) Negative INFLUENZA A Negative INFLUENZA B Negative RSV PCR Negative Normal [facility] Comment on above: Performed By: #### M 100.208 #### [facility] [place], [address] Emergency Department Summary on 07-01-2024 Emergency Department Summary [facility] Medical Records Department [address] [place] [address] Emergency Department Summary 07/01/24 MR#: [id number] Acct: [id number] Name: MITCHELL CHAIREZ Rep #: [id number] : 2000 From: Jeffery Villafuerte DO PCP: Care Physician,No Primary Status:REG ER Location: ED HPI History of Present Illness Chief Complaint: Upper Extremity Injury Narrative Narrative: Patient is a 23-year-old male with no significant medical history, last tetanus vaccination was 1 month ago. 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 Patient states that he tried to get it out however he is unsure if he did. Now is more swollen, red is here for evaluation [facility] Medical History (Updated 07/01/24 @ 21:03 by CYNTHIA DelacruzC) ADHD Home Medications ???Medication ???Instructions ???Recorded ???Last Taken ???Type NK 09/27/20 Unknown History cephalexin 500 mg capsule 500 mg PO Q6 #40 CAPSULES 07/01/24 Unknown Rx Allergy/AdvReac Type Severity Reaction Status Date / Time No Known Allergies Allergy Verified 07/01/24 20:33 Surgical History History of appendectomy Social History (Updated 06/24/23 @ 21:[address] Marco Lemus MD) household members: spouse and children Smoking Status: Current every day smoker tobacco type: e-cigarettes Electronic Cigarette Use: with nicotine substance use type: does not use ROS ROS ED ROS Narrative Constitutional: Negative for fever, chills, weight loss, weakness Eyes: Negative for vision loss, vision change, double vision ENT: Negative for any sore throat, ear pain, congestion Cardiovascular: Negative for any chest pain, tightness, palpitations Respiratory: Negative for any cough, sputum production, hemoptysis, dyspnea, dyspnea on exertion, orthopnea Gastrointestinal: Negative for any abdominal pain, nausea, vomiting, diarrhea, constipation, blood in stool, blood in vomit : Negative for any urinary frequency, dysuria, retention, blood in urine Muscle skeletal: Negative for any neck pain, back pain. Positive right thumb pain Neurological: Negative for any headache, syncope, dizziness. Skin: Negative for any rashes, itching, abrasions, lacerations. Positive for swelling, erythema to the right thumb Psychiatric: Negative for any depression, anxiety, stress, suicidal ideation, homicidal ideation Hematologic: Negative for any excessive bruising, easy bleeding EXAM Physical Exam Const Vital Signs: 07/01/24 20:33 Temperature 97.2 F L Temperature Source Temporal Pulse Rate 85 Respiratory Rate 18 Blood Pressure 112/67 Blood Pressure Mean 82 Pulse Ox 97 Oxygen Delivery Method Room Air Physical Exam Narrative Exam Narrative: Vital signs reviewed. Extremities: No peripheral edema, no signs of gross trauma or deformity. Active full range of motion of all extremities. Patient does have what appears to be a small little abscess to the pad of the right thumb. There is no foreign body noted on initial evaluation. Patient has no patient is full range of motion. +2 radial pulse Neuro: Cranial nerves II through XII intact, no focal neurological deficits. Skin: Clean dry and intact with no rash, purpura, petechiae, vesicles or pustules. Backs/flank: No CVA tenderness, no midline spinal tenderness, no deformity. Psych: Normal mood and affect. No SI, HI or acute psychosis. MDM MDM MDM Narrative Medical decision making narrative: I have personally performed a face to face assessment of the patient and have reviewed the WOLF Note. I performed a substantive portion of the visit including all aspects of the following. My alarcon findings include: History: Patient presents with redness and swelling to the pad of the right thumb. Patient states he had a metallic splinter into his thumb a couple days ago. Patient states he was able to pull out some of the metal fragment. Patient states he has some increased redness and swelling over the area. Patient denies any paresthesias or weakness. Patient denies any fevers or chills. Exam: Vital signs are stable. Patient is afebrile. Patient is in no acute distress. Skin is warm and dry. There is some erythema and edema over the volar aspect of the proximal fortune of the d istal phalanx of the right thumb. There is minimal drainage. There is no foreign body noted. There is good range of motion of the IP and MP joints of the right thumb. Sensation was intact to light touch in all digits. Capillary refill was less than 2 seconds in all digits. Medical Decision Making: Differential diagnosis includes abscess, retained foreign body, and cellulitis. X-rays of the right thumb will be obtained to assess for retained foreign body. Patien (more content not included)... Normal [facility] Finger(s) Min 2 Viewson 06-16 Finger(s) Min 2 Views [facility] Imaging Services [address] [place], [place] [id number] [phone] Finger(s) Min 2 Views MR#: [id number] Acct: [id number] Name: MITCHELL CHAIREZ Rep #: [id number] : 2000 M 23 From: Terry Lucio MD PCP: Care Physician,No Primary Status: REG ER Study: Finger(s) Min 2 Views Date of Exam: 07/01/24 Exam# [id number] Ordering Dr: Manoj Ramon PROCEDURE: FINGER(S) MIN 2 VIEWS REASON FOR EXAM: SPLINTER RIGHT THUMB TECHNIQUE: 3 view(s) of the right 1st ray, thumb COMPARISON: None FINDINGS: No radiopaque foreign body identified. The osseous structures appear within limits. Joint spaces appear within limits. RAD/Finger(s) Min 2 Views IMPRESSION: No radiopaque foreign body identified. Reading Location: [facility] CC: LUANNE Ramon; No Primary Care Physician Public Health Representative: Signed Normal [facility] CR Ribs w/ PA Chest Righton 05-24-2020 CR Ribs w/ PA Chest Right Patient Name: MITCHELL CHAIREZ Diagnostic Radiology ACCESSION EXAM DATE/TIME PROCEDURE ORDERING PROVIDER [id number] 05/23/2020 23:47 EST CR Ribs w/ PA Chest STEPAN WALLACE Right CPT code 74617 Reason For Exam (CR Ribs w/ PA Chest Right) pain Report RIGHT RIB SERIES WITH CHEST: INDICATION: Left chest pain COMPARISON: No previous studies are available for comparison. Examination of right ribs was obtained with three views. An additional PA view of the chest was obtained. Evaluation of the right ribs demonstrate mild contour variation of the medial aspect of the 12th rib but no fracture of the ribs. There is no pleural thickening nor is there abnormality of the underlying pulmonary parenchyma. The heart and mediastinum to the extent of visualization are unremarkable. The right lung apex is clear. IMPRESSION: No acute process. No fractures are identified. Report Dictated on Workstation: [id number] Final Dictating Physician: DO ACRUSO ALFRED Signed Date and Time: 05/24/2020 0:19 am Signed by: DO CARUSO ALFRED Transcribed Date and Time: 05/24/2020 0:20 Normal [facility] XR RIBS RIGHT INCLUDE CHEST (MIN 3 VIEWS)on 05-24-2020 Patient Name: MITCHELL CHAIREZ Diagnostic Radiology ACCESSION EXAM DATE/TIME PROCEDURE ORDERING PROVIDER [id number] 05/23/2020 23:47 EST CR Ribs w/ PA Chest MADISON[facility] Right CPT code 25370 Reason For Exam (CR Ribs w/ PA Chest Right) pain Report RIGHT RIB SERIES WITH CHEST: INDICATION: Left chest pain COMPARISON: No previous studies are available for comparison. Examination of right ribs was obtained with three views. An additional PA view of the chest was obtained. Evaluation of the right ribs demonstrate mild contour variation of the medial aspect of the 12th rib but no fracture of the ribs. There is no pleural thickening nor is there abnormality of the underlying pulmonary parenchyma. The heart and mediastinum to the extent of visualization are unremarkable. The right lung apex is clear. IMPRESSION: No acute process. No fractures are identified. Report Dictated on Workstation: [id number] --- Final --- Dictating Physician: DO CARUSO ALFRED Signed Date and Time: 05/24/2020 0:19 am Signed by: DO CARUSO ALFRED Transcribed Date and Time: 05/24/2020 0:20 [facility]- [place], [place], [facility] Incoming Radiology Results From [facility] - 05/24/2020 12:20 AM EST Patient Name: MITCHELL CHAIREZ Diagnostic Radiology ACCESSION EXAM DATE/TIME PROCEDURE ORDERING PROVIDER [id number] 05/23/2020 23:47 EST CR Ribs w/ PA Chest STEPAN WALLACE Right CPT code 02931 Reason For Exam (CR Ribs w/ PA Chest Right) pain Report RIGHT RIB SERIES WITH CHEST: INDICATION: Left chest pain COMPARISON: No previous studies are available for comparison. Examination of right ribs was obtained with three views. An additional PA view of the chest was obtained. Evaluation of the right ribs demonstrate mild contour variation of the medial aspect of the 12th rib but no fracture of the ribs. There is no pleural thickening nor is there abnormality of the underlying pulmonary parenchyma. The heart and mediastinum to the extent of visualization are unremarkable. The right lung apex is clear. IMPRESSION: No acute process. No fractures are identified. Report Dictated on Workstation: [facility]-REMOTE --- Final --- Dictating Physician: DO CARUSO ALFRED Signed Date and Time: 05/24/2020 0:19 am Signed by: DO CARUSO ALFRED Transcribed Date and Time: 05/24/2020 0:20 [place], [place] CBC and Differentialon 06-19 Abs Baso 0.05 k/uL Normal <0.11 [facility] Abs Archer 0.45 k/uL Normal <0.87 [facility] Abs Neut 6.18 k/uL Normal 1.45-7.50 [facility] Absolute nRBC <0.01 Normal <0.01 [facility] Basophils/100 WBC (Bld) 0.6 % Normal [facility] DTYPE Auto Diff Normal [facility] Eosinophils (Bld) [#/Vol] 0.17 10*3/uL Normal <0.46 [facility] Eosinophils/100 WBC (Bld) 2.0 % Normal [facility] Erythrocyte distribution width (RBC) [Ratio] 12.5 % Normal 11.5-15.0 [facility] Hematocrit (Bld) [Volume fraction] 43.5 % Normal 39.0-51.0 [facility] Hemoglobin (Bld) [Mass/Vol] 14.3 g/dL Normal 13.0-17.0 [facility] Lymphocytes (Bld) [#/Vol] 1.74 10*3/uL Normal 1.00-4.00 [facility] Lymphocytes/100 WBC (Bld) 20.2 % Normal [facility] MCH (RBC) [Entitic mass] 29.1 pG Normal 26.0-34.0 [facility] MCHC (RBC) [Mass/Vol] 32.9 g/dL Normal 30.5-36.0 [facility] MCV (RBC) [Entitic vol] 88.6 fL Normal 80.0-100.0 [facility] Monocytes/100 WBC (Bld) 5.2 % Normal [facility] Neutrophils/100 WBC (Bld) 72.0 % Normal [facility] NRBCs 0.0 /100 WBC Normal 0 [facility] l Platelet mean volume (Bld) [Entitic vol] 10.5 fL Normal 9.0-12.7 [facility] Platelets (Bld) [#/Vol] 204 10*3/uL Normal 150-400 [facility] RBC (Bld) [#/Vol] 4.91 10*6/uL Normal 4.20-6.00 [facility] WBC (Bld) [#/Vol] 8.61 10*3/uL Normal 3.70-11.00 [facility] Comp Metabolic Panelon 06-19 Albumin [Mass/Vol] 4.1 g/dL Normal 3.9-4.9 [facility]spital ALP [Catalytic activity/Vol] 62 U/L Normal 38-113 [facility] ALT [Catalytic activity/Vol] 8 U/L Low 10-54 [facility] Anion gap [Moles/Vol] 10 mmol/L Normal 9-18 [facility] AST [Catalytic activity/Vol] 14 U/L Normal 14-40 [facility] Bilirubin [Mass/Vol] 0.2 mg/dL Normal 0.2-1.3 [facility] Calcium [Mass/Vol] 9.2 mg/dL Normal 8.5-10.2 [facility] Chloride [Moles/Vol] 105 mmol/L Normal 97-105 [facility] CO2 [Moles/Vol] 26 mmol/L Normal 22-30 [facility] ital Creatinine [Mass/Vol] 0.94 mg/dL Normal 0.73-1.22 [facility] eGFR- Amer. >60 Normal [facility] GFR/1.73 sq M predicted among non-blacks MDRD (S/P/Bld) [Vol rate/Area] mL/min/{1.73_m2} Normal [facility] Comment on above: Result Comment: eGFR (Estimated GFR) Units of measure: mL/min/1.73 meters squared eGFR is derived from the reexpressed MDRD Study equation using the following parameters: serum creatinine, age, gender and race. The creatinine assay has been calibrated to be traceable to IDMS. An eGFR <60 mL/min/1.73m2 for >3 months is consistent with chronic kidney disease. Refer to KDOQI guidelines for clinical interpretation. In patients with unstable renal function, e.g. those with acute kidney injury, the eGFR may not accurately reflect actual GFR. Glucose [Mass/Vol] 83 mg/dL Normal 74-99 [facility] Comment on above: Result Comment: The [place] [employer] (ADA) provides guidance for cutoff values for fasting glucose and random glucose. The ADA defines fasting as no caloric intake for at least 8 hours. Fasting plasma glucose results between 100 to 125 mg/dL indicate increased risk for diabetes (prediabetes). Fasting plasma glucose results greater than or equal to 126 mg/dL meet the criteria for diagnosis of diabetes. In the absence of unequivocal hyperglycemia, results should be confirmed by repeat testing. In a patient with classic symptoms of hyperglycemia or hyperglycemic crisis, random plasma glucose results greater than or equal to 200 mg/dL meet the criteria for diagnosis of diabetes. Reference: Standards of Medical Care in Diabetes 2016, [place] [employer]. Diabetes Care. 2016.39(Suppl 1). Potassium [Moles/Vol] 4.1 mmol/L Normal 3.7-5.1 [facility] Protein [Mass/Vol] 6.6 g/dL Normal 6.3-8.0 [facility] Sodium [Moles/Vol] 141 mmol/L Normal 136-144 [facility] Urea nitrogen [Mass/Vol] 10 mg/dL Normal 9-24 [facility] ED NOTEon 06-20-2019 ED NOTE HNO ID: [id number] Author: Rosa (Rn) CHULA Lew Service: ? Author Type: Registered Nurse Type: ED Notes Filed: 06/20/2019 6:07 PM Note Text: Pt. given discharge instructions regarding meds, when to return to the ED and follow up with primary care physician. Pt. states understanding of instructions. Saline lock DC'd. [facility] ED NOTE HNO ID: [id number] Author: Padmaja (Rn) HCULA Leon Service: ? Author Type: Registered Nurse Type: ED Notes Filed: 06/20/2019 3:49 PM Note Text: Pt to ED for nausea x a few hours. States he gets these episodes of nausea since his appendix removal 2 years ago, does not have a PCP or GI doctor. States he also noticed two lumps in his L upper groin yesterday. State he has no pain at this time. [facility] ED PROV NOTEon 06-20-2019 ED PROV NOTE HNO ID: [id number] Author: Jacobo Saucedo MD Service: Emergency Medicine Author Type: Physician Type: ED Provider Notes Filed: 06/20/2019 10:58 PM Note Text: ED Provider Note Patient Name: Mitchell Chairez SERVICE DATE: 06/20/19 History Patient presents with: Nausea: x a few hours Groin Pain: lumps on lower abd/groin area HPI 18 y/o male with PMH appendectomy presents with CC nausea. Today pt was helping sister move/set up furniture around noon when he experienced sudden onset nausea over the course of 5 minutes. Nausea was associated with subjective increase in HR. No palpitations, chest pain, lightheadedness, syncope. Symptoms have significantly improved with rest. No nausea at present. Pt has been experiencing these episodes intermittently since having appendix out in 2018. Nausea comes and goes with exertion. Not affected by meals or posture. No drug use. Unlike prior episodes, Pt noticed two small lumps in his left groin last evening. Nonpainful, non-tender. No rash. No scrotal or penile swelling or pain. Not sexually active for past 6 months. No concern for STD. Pt is stable at this time. PAST SURGICAL HISTORY Procedure Laterality Date - APPENDECTOMY HX No family history on file. Social History Tobacco Use - Smoking status: Current Every Day Smoker - Smokeless tobacco: Never Used Substance and Sexual Activity - Alcohol use: Not Currently - Drug use: Not Currently - Sexual activity: Not Currently ALLERGIES No Known Allergies Review of Systems Constitutional: Negative for appetite change, chills, fatigue and fever. HENT: Negative for congestion, sinus pain and sore throat. Eyes: Negative for photophobia and visual disturbance. Respiratory: Negative for cough and shortness of breath. Cardiovascular: Negative for chest pain and palpitations. Gastrointestinal: Positive for abdominal pain and nausea. Negative for blood in stool, constipation, rectal pain and vomiting. Endocrine: Negative for polydipsia and polyphagia. Genitourinary: Negative for decreased urine volume, discharge, dysuria, hematuria, penile pain, penile swelling, scrotal swelling and testicular pain. Musculoskeletal: Negative for neck pain and neck stiffness. Skin: Negative. Neurological: Negative for dizziness, syncope, light-headedness and headaches. Hematological: Negative. Psychiatric/Behavioral : Negative. Physical Exam BP 114/77 Pulse 60 Temp (Src) 97.8 (Oral) Resp 20 Ht 6' 7 (2.01m) Wt 165 lb (74.8kg) SpO2 98% BMI 18.58 kg/(m2). O2 Therapy: Room Air Physical Exam Vitals signs and nursing note reviewed. Constitutional: General: He is not in acute distress. Appearance: Normal appearance. He is not ill-appearing. Comments: Pt is well-appearing and well-nourished. No evidence of acute cardiac or respiratory distress. Eyes: Extraocular Movements: Extraocular movements intact. Conjunctiva/sclera: Conjunctivae normal. Cardiovascular: Rate and Rhythm: Normal rate and regular rhythm. Heart sounds: Normal heart sounds. No murmur. No friction rub. No gallop. Comments: Regular heart rate and rhythm. No rubs, murmurs, or gallops. Pulmonary: Effort: Pulmonary effort is normal. No respiratory distress. Breath sounds: Normal breath sounds. No wheezing or rhonchi. Comments: LCTABL. No increased work of breathing. Abdominal: General: Abdomen is flat. There is no distension. Palpations: Abdomen is soft. Tenderness: There is no abdominal tenderness. There is no right CVA tenderness, left CVA tenderness or guarding. Genitourinary: Penis: Normal. Scrotum/Testes: Normal. Comments: Two, 1-2cm-sized L inguinal lymph nodes. Non fluctuant, Non tender. No evidence of surrounding infection. Penis and scrotum WNL. No penile discharge or genital rash/lesions. Nontender. No evidence of hernia. Musculoskeletal: General: No swelling or tenderness. Right lower leg: No edema. Left lower leg: No edema. Skin: General: Skin is warm and dry. Comments: No evidence of rash, lesions or infection of the abdomen, groin, or LLE. Neurological: Mental Status: He is alert and oriented to person, place, and time. Psychiatric: Mood and Affect: Mood normal. Behavior: Behavior normal. Diagnostic Testing ED Labs Ordered and Reviewed COMPREHENSIVE METABOLIC PANEL (AK,AV,EU,FV,HL,FLORENTINO,MM, SP) - Abnormal; Notable for the following components: Result Value Ref Range ALT 8 (*) 10 - 54 U/L All other components within normal limits URINALYSIS WITH MICROSCOPIC (AK,AV,EU,FV,HL,FLORENTINO,MM, SP) - Abnormal; Notable for the following components: Clarity Cloudy (*) Clear All other components within normal limits CBC + AUTO DIFF (AK,AV,EU,FV,HL,FLORENTINO,MM, SP) Procedures None ED Course / Clinical Impression Clinical Impressions as of Jun 20 1819 Nausea Lymphadenopathy, inguinal MDM / Disposition / Plan MDM Vital signs were reviewed. Triage records were reviewed. Medical records were reviewed. Nursing notes were reviewed and incorporated. 18 year old male presents with intermittent episodes of nausea with exertion. Pt hs been experiencing episodes since appendectomy in 2018. New L inguinal lymphadenopathy as of yesterday evening. Pt is afebrile, non-toxic and hemodynamically stable. Vital signs on arrival are BP 114/77 Pulse 60 Temp 36.6 ?C (97.8 ?F) (Oral) Resp 20 Ht 200.7 cm (6' 7) Wt 74.8 kg (165 lb) SpO2 98% BMI 18.59 kg/m? Physical exam revealed two very small, nontender, nonfluctulant lymph nodes in the L inguinal fold. No surrounding erythema or edema. exam WNL, specifically no evidence of hernia or scrotal abnormality. No abdominal TTP. Normal lower extremity exam. Hear/lung WNL. LABS: CMP- WNL CBC- WNL UA- WNL IMAGING: None Based on HPI, benign physical exam and normal labs, there is little concern for acute infection or emergent structural abnormality that would be causing the patient's symptoms. Pt was educated about his results and the need to follow up with a PCP. Pt does not have a PCP currently, therefore contact information for internal medicine was provided. Pt remained stable and asymptomatic throughout duration of ED stay. Pt discharged home d/t good condition, given Rx for Zofran. Pt instructed to f/u with PCP (reference provided) to discuss recurrent symptoms and encouraged to return if symptoms worsen or if new symptoms develop. Patient expressed understanding and consented to the above plan. No barriers of communication were apparent and all questions were answered. SIGNATURE: Aria Hernandez PA-C Attending Note I have personally performed a face to face assessment of the patient and have reviewed the PA/[employer] note. My alarcon findings include: 18 year old male presenting to the emergency department with concern for nausea and left inguinal lymphadenopathy. On exam, he has extremely mild inguinal lymphadenopathy with no signs of infection present. Urinalysis checked and was unremarkable. Regarding his nausea, symptoms have currently resolved. Labs and exam benign, we'll discharge home with prescription for Zofran. Recommend he establish a PCP for follow-up. Signature: Jacobo Saucedo MD Date: 06/20/2019 Time: 10:57 PM Jacobo Saucedo MD 06/20/19 1216 Normal [facility] Urinalysis with Microscopico n 06-20-2019 Bilirubin, Urine Negative Normal Negative [facility] pital Cast SEE COMMENT Normal 0 [facility] Comment on above: Result Comment: 0 Clarity (U) Cloudy Critically abnormal Clear [facility] Color (U) Yellow Normal Yellow [facility] Glucose Ql (U) Negative Normal Negative [facility] daniel Hemoglobin/Blood,Ur Negative Normal Negative [facility] Ketones Ql (U) Negative Normal Negative [facility] daniel Leukest Negative Normal Negative [facility] Nitrite Ql (U) Negative Normal Negative [facility]i daniel pH (Bld) 8.0 Normal 4.5-8.0 [facility] Protein (U) [Mass/Vol] Negative Normal Negative [facility] RBC (U) [#/Vol] 0-3 Normal 0-3 [facility] Specific [place], Ur 1.019 Normal 1.005-1.030 [facility] Urobilinogen Qn (U) Normal Normal Normal [facility] WBC (Bld) [#/Vol] 0-5 Normal 0-5 [facility] ED NOTEon 06-01-2019 ED NOTE HNO ID: [id number] Author: Joanne Whiting) CHULA Vivar Service: ? Author Type: Registered Nurse Type: ED Notes Filed: 06/01/2019 1:58 AM Note Text: D/c instructions reviewed with patient, patient verbalizes understanding of s/s to return to ED for. Patient aware of follow up care.Patient aox3 speech clear and ambulatory upon departure. Pt left ED in no acute distress. [facility] ED NOTE HNO ID: [id number] Author: JUDE Olivarez (Pa) Service: Emergency Medicine Author Type: Physician Whitewasher Type: ED Notes Filed: 06/01/2019 9:54 AM Note Text: Feeling better. [facility] ED PROV NOTEon 06-01-2019 ED PROV NOTE HNO ID: [id number] Author: Inocencio Pham Service: Emergency Medicine Author Type: Physician Type: ED Provider Notes Filed: 06/01/2019 1:55 AM Note Text: ED Provider Note Patient Name: Mitchell Chairez SERVICE DATE: 05/31/19 History Patient presents with: Nausea This is a 18 years old male patient presented to the emergency department with a chief complaint of nausea. Patient states he felt nauseated for the past 3 hours, also felt dizzy and he describes his dizziness as spinning sensation that lasted for 5 minutes and never happen again. Patient denies chest pain, vomiting, headache, change in vision, neck pain, shortness of breath, cough, abdominal pain, diarrhea, constipation, weakness, numbness, fever, chills or body aches. Patient states this episode happen at work and it happened to him in the past and they requested to get a work note from the patient. Past medical history: Denies Past surgical history: Appendectomy Social history: Smokes cigarettes, denies alcohol use, denies illicit drug use Allergies: None. No past medical history on file. PAST SURGICAL HISTORY Procedure Laterality Date - APPENDECTOMY HX No family history on file. Social History Tobacco Use - Smoking status: Current Every Day Smoker Packs/day: 0.50 - Smokeless tobacco: Never Used Substance and Sexual Activity - Alcohol use: Never Frequency: Never Comment: rare - Drug use: Yes Types: Marijuana Comment: occassional/recreation al - Sexual activity: Yes ALLERGIES No Known Allergies Review of Systems Constitutional: Negative for activity change, appetite change, chills, diaphoresis, fatigue and fever. HENT: Negative for congestion, drooling, ear pain, sinus pain, sneezing, sore throat, trouble swallowing and voice change. Eyes: Negative for photophobia, discharge, redness and visual disturbance. Respiratory: Negative for apnea, cough, choking, chest tightness, shortness of breath, wheezing and stridor. Cardiovascular: Negative. Gastrointestinal: Positive for nausea. Endocrine: Negative for cold intolerance, heat intolerance, polydipsia, polyphagia and polyuria. Genitourinary: Negative for decreased urine volume, dysuria, flank pain, frequency and urgency. Musculoskeletal: Negative for back pain, gait problem, neck pain and neck stiffness. Skin: Negative for color change, pallor and rash. Allergic/Immunologic: Negative for environmental allergies. Neurological: Positive for dizziness. Negative for seizures, syncope, facial asymmetry, weakness, light-headedness, numbness and headaches. Hematological: Does not bruise/bleed easily. Psychiatric/Behavioral : Negative for agitation, behavioral problems, confusion, self-injury and suicidal ideas. The patient is not nervous/anxious. Physical Exam BP 127/97 Pulse 64 Temp (Src) 97.7 (Oral) Resp 18 Ht 6' 7 (2.01m) Wt 165 lb (74.8kg) SpO2 99% BMI 18.58 kg/(m2). O2 Therapy: Room Air Physical Exam Vitals signs and nursing note reviewed. Constitutional: General: He is not in acute distress. Appearance: He is well-developed. He is not diaphoretic. HENT: Head: Normocephalic and atraumatic. Right Ear: External ear normal. Left Ear: External ear normal. Nose: Nose normal. Mouth/Throat: Pharynx: No oropharyngeal exudate. Eyes: General: No scleral icterus. Right eye: No discharge. Left eye: No discharge. Conjunctiva/sclera: Conjunctivae normal. Pupils: Pupils are equal, round, and reactive to light. Neck: Musculoskeletal: Normal range of motion and neck supple. Thyroid: No thyromegaly. Vascular: No JVD. Trachea: No tracheal deviation. Cardiovascular: Rate and Rhythm: Normal rate and regular rhythm. Heart sounds: Normal heart sounds. No murmur. Pulmonary: Effort: Pulmonary effort is normal. No respiratory distress. Breath sounds: Normal breath sounds. No stridor. No wheezing or rales. Chest: Chest wall: No tenderness. Abdominal: General: Bowel sounds are normal. There is no distension. Palpations: Abdomen is soft. Tenderness: There is no abdominal tenderness. There is no guarding or rebound. Hernia: No hernia is present. Musculoskeletal: Normal range of motion. General: No tenderness. Skin: General: Skin is warm. Capillary Refill: Capillary refill takes less than 2 seconds. Coloration: Skin is not pale. Findings: No erythema. Neurological: Mental Status: He is alert and oriented to person, place, and time. Cranial Nerves: No cranial nerve deficit. Sensory: No sensory deficit. Motor: No abnormal muscle tone. Psychiatric: Behavior: Behavior normal. Diagnostic Testing ED Labs Ordered and Reviewed - No data to display Procedures ED Course / Clinical Impression Clinical Impressions as of Jun 01 154 Nausea MDM / Disposition / Plan Patient seen and examined, this like test is negative, he is neurologically intact, NIH stroke scale of 0. Abdominal exam is unremarkable, no distention, guarding, rigidity, or rebound. We'll administer Zofran, and we will provide the patient with by mouth challenge. If the patient is able to pass it he will be discharged home on Zofran to follow-up as an outpatient with primary care doctor. Patient passes by mouth challenge, he is discharged to follow-up as an outpatient with instructions to return to the ED for alarming symptoms arise. SIGNATURE: DO Inocencio Mccormack 06/01/195 Normal [facility] CBC and Differentialon 05-01 Abs Baso 0.05 k/uL Normal <0.11 [facility] Abs Archer 0.93 k/uL High <0.87 [facility] Abs Neut 15.23 k/uL High 1.45-7.50 [facility] Absolute nRBC <0.01 Normal <0.01 [facility] Basophils/100 WBC (Bld) 0.3 % Normal [facility] DTYPE Auto Diff Normal [facility] Eosinophils (Bld) [#/Vol] 10*3/uL Normal <0.46 [facility] Eosinophils/100 WBC (Bld) 0.1 % Normal [facility] Erythrocyte distribution width (RBC) [Ratio] 11.9 % Normal 11.5-15.0 [facility] Hematocrit (Bld) [Volume fraction] 46.1 % Normal 39.0-51.0 [facility] Hemoglobin (Bld) [Mass/Vol] 15.6 g/dL Normal 13.0-17.0 [facility] Lymphocytes (Bld) [#/Vol] 1.29 10*3/uL Normal 1.00-4.00 [facility] Lymphocytes/100 WBC (Bld) 7.4 % Normal [facility] MCH (RBC) [Entitic mass] 29.5 pG Normal 26.0-34.0 [facility] MCHC (RBC) [Mass/Vol] 33.8 g/dL Normal 30.5-36.0 [facility] MCV (RBC) [Entitic vol] 87.1 fL Normal 80.0-100.0 [facility] Monocytes/100 WBC (Bld) 5.3 % Normal [facility] Neutrophils/100 WBC (Bld) 86.9 % Normal [facility] NRBCs 0.0 /100 WBC Normal 0 [facility] l Platelet mean volume (Bld) [Entitic vol] 10.0 fL Normal 9.0-12.7 [facility] Platelets (Bld) [#/Vol] 231 10*3/uL Normal 150-400 [facility] RBC (Bld) [#/Vol] 5.29 10*6/uL Normal 4.20-6.00 [facility] WBC (Bld) [#/Vol] 17.52 10*3/uL High 3.70-11.00 [facility] Comp Metabolic Panelon 05-01 Albumin [Mass/Vol] 4.5 g/dL Normal 3.9-4.9 [facility] ALP [Catalytic activity/Vol] 65 U/L Normal 38-113 [facility] ALT [Catalytic activity/Vol] 11 U/L Normal 10-54 [facility] Anion gap [Moles/Vol] 13 mmol/L Normal 9-18 [facility] AST [Catalytic activity/Vol] 16 U/L Normal 14-40 [facility] Bilirubin [Mass/Vol] 0.6 mg/dL Normal 0.2-1.3 [facility] Calcium [Mass/Vol] 9.9 mg/dL Normal 8.5-10.2 [facility] Chloride [Moles/Vol] 101 mmol/L Normal 97-105 [facility] CO2 [Moles/Vol] 24 mmol/L Normal 22-30 [facility] Creatinine [Mass/Vol] 1.02 mg/dL Normal 0.73-1.22 [facility] eGFR- Amer. >60 Normal [facility] GFR/1.73 sq M predicted among non-blacks MDRD (S/P/Bld) [Vol rate/Area] mL/min/{1.73_m2} Normal [facility] Comment on above: Result Comment: eGFR (Estimated GFR) Units of measure: mL/min/1.73 meters squared eGFR is derived from the reexpressed MDRD Study equation using the following parameters: serum creatinine, age, gender and race. The creatinine assay has been calibrated to be traceable to IDMS. An eGFR <60 mL/min/1.73m2 for >3 months is consistent with chronic kidney disease. Refer to KDOQI guidelines for clinical interpretation. In patients with unstable renal function, e.g. those with acute kidney injury, the eGFR may not accurately reflect actual GFR. Glucose [Mass/Vol] 113 mg/dL High 74-99 [facility] Comment on above: Result Comment: The [place] [employer] (ADA) provides guidance for cutoff values for fasting glucose and random glucose. The ADA defines fasting as no caloric intake for at least 8 hours. Fasting plasma glucose results between 100 to 125 mg/dL indicate increased risk for diabetes (prediabetes). Fasting plasma glucose results greater than or equal to 126 mg/dL meet the criteria for diagnosis of diabetes. In the absence of unequivocal hyperglycemia, results should be confirmed by repeat testing. In a patient with classic symptoms of hyperglycemia or hyperglycemic crisis, random plasma glucose results greater than or equal to 200 mg/dL meet the criteria for diagnosis of diabetes. Reference: Standards of Medical Care in Diabetes 2016, [place] [employer]. Diabetes Care. 2016.39(Suppl 1). Potassium [Moles/Vol] 4.0 mmol/L Normal 3.7-5.1 [facility] Protein [Mass/Vol] 7.2 g/dL Normal 6.3-8.0 [facility] Sodium [Moles/Vol] 138 mmol/L Normal 136-144 [facility] Urea nitrogen [Mass/Vol] 11 mg/dL Normal 9-24 [facility] ED NOTEon 05-01-2019 ED NOTE HNO ID: [id number] Author: Justyna RamosRn) CHULA Patton Service: ? Author Type: Registered Nurse Type: ED Notes Filed: 05/01/2019 1:00 AM Note Text: Discharge instructions and medications reviewed with patient. Patient verbalizes understanding. Instructions signed and copy given. Questions and concerns addressed. Patient left the ED in no acute distress. [facility] ED NOTE HNO ID: [id number] Author: Colleen Fregoso (Rn) CHULA Khan Service: Nursing Author Type: Registered Nurse Type: ED Notes Filed: 04/30/2019 10:58 PM Note Text: Pt woke from sleep at 2100 vomiting, he has since vomited 3 times. Pt c/o dizziness and feeling really hot. Pt was in the ED ([facility]) and was diagnosed with an ear infection. He started Amoxicillin today. [facility] ED PROV NOTEon 05-01-2019 ED PROV NOTE HNO ID: [id number] Author: Rosenda Patel Service: ? Author Type: Physician Whitewasher Type: ED Provider Notes Filed: 05/01/2019 2:17 AM Note Text: ED Provider Note Patient Name: Mitchell Chairez SERVICE DATE: 04/30/19 History Patient presents with: Nausea AND Vomiting: started 2100 Dizziness 18-year-old male presents to the emergency department today with his sister for evaluation of dizziness with nausea and vomiting which began at approximately 9 PM this evening. The patient states that he was seen at an outside hospital emergency department earlier today for left sided ear pain. He was diagnosed with otitis media and started on amoxicillin. Patient had one dose of amoxicillin. He states that he then went out to the eat with his sister. When he got home from eating he felt dizzy and went to lie down. Shortly after that he had 3 episodes of nausea and vomiting. He states that he has had amoxicillin before. No known allergy to penicillins. He states that he is feeling better now being here in the emergency department. No history of stroke. Denies family history of stroke. Denies having any significant pain at this time. Denies any vision changes. No numbness or weakness. No chest pain or shortness of breath. No abdominal pain. History reviewed. No pertinent past medical history. PAST SURGICAL HISTORY Procedure Laterality Date - APPENDECTOMY HX No family history on file. Social History Tobacco Use - Smoking status: Current Every Day Smoker Packs/day: 0.50 - Smokeless tobacco: Never Used Substance and Sexual Activity - Alcohol use: Never Frequency: Never Comment: rare - Drug use: Yes Types: Marijuana Comment: occassional/recreation al - Sexual activity: Yes ALLERGIES No Known Allergies Review of Systems Constitutional: Negative for chills and fever. HENT: Positive for congestion and ear pain. Negative for ear discharge, sore throat, trouble swallowing and voice change. Eyes: Negative for visual disturbance. Respiratory: Positive for cough. Negative for shortness of breath, wheezing and stridor. Cardiovascular: Negative for chest pain, palpitations and leg swelling. Gastrointestinal: Positive for nausea and vomiting. Negative for abdominal pain, blood in stool and diarrhea. Genitourinary: Negative for difficulty urinating. Musculoskeletal: Negative for back pain, neck pain and neck stiffness. Skin: Negative for rash and wound. Neurological: Positive for dizziness and headaches. Negative for syncope, facial asymmetry, speech difficulty, weakness, light-headedness and numbness. Hematological: Does not bruise/bleed easily. Psychiatric/Behavioral : Negative for agitation, behavioral problems and confusion. Physical Exam BP 109/67 Pulse 98 Temp 98.7 Resp 18 Ht 6' 7 (2.01m) Wt 161 lb 6.4 oz (73.2kg) SpO2 98% BMI 18.18 kg/(m2). O2 Therapy: Room Air Physical Exam Vitals signs and nursing note reviewed. Constitutional: General: He is not in acute distress. Appearance: He is well-developed. He is not ill-appearing, toxic-appearing or diaphoretic. Comments: Appears well, no acute distress. Non-toxic appearing HENT: Head: Normocephalic and atraumatic. Ears: Comments: Left tm mildly erythematous. No bulging. No TM rupture. No mastoid tenderness bilaterally. Nose: Nose normal. Mouth/Throat: Mouth: Mucous membranes are moist. Pharynx: Oropharynx is clear. Eyes: General: No scleral icterus. Extraocular Movements: Extraocular movements intact. Pupils: Pupils are equal, round, and reactive to light. Neck: Musculoskeletal: Normal range of motion and neck supple. No neck rigidity or muscular tenderness. Cardiovascular: Rate and Rhythm: Normal rate and regular rhythm. Pulmonary: Effort: Pulmonary effort is normal. No respiratory distress. Breath sounds: Normal breath sounds. No stridor. No wheezing, rhonchi or rales. Chest: Chest wall: No tenderness. Abdominal: General: There is no distension. Palpations: Abdomen is soft. Tenderness: There is no abdominal tenderness. There is no guarding or rebound. Neurological: General: No focal deficit present. Mental Status: He is alert and oriented to person, place, and time. Cranial Nerves: No cranial nerve deficit. Sensory: No sensory deficit. Motor: No weakness. Coordination: Coordination normal. Gait: Gait normal. Psychiatric: Mood and Affect: Mood normal. Behavior: Behavior normal. Diagnostic Testing ED Labs Ordered and Reviewed - No data to display Procedures ED Course / Clinical Impression Clinical Impressions as of May 01 211 Nausea and vomiting, intractability of vomiting not specified, unspecified vomiting type Dizziness Acute otitis media, unspecified otitis media type Leukocytosis, unspecified type MDM / Disposition / Plan 18-year-old male presents emergency Department today with his sister for evaluation of dizziness with associated nausea and vomiting. On exam he appears well in no acute distress. He is afebrile and hemodynamically stable. He states that since he has arrived in the ER his dizziness has subsided. He states that he does still feel nauseous. He was diagnosed with acute otitis media earlier today and an outside hospital emergency department and is on amoxicillin. His physical exam does reveal erythematous TM on the left side. He does not have any mastoid tenderness bilaterally. Patient has no focal neurologic deficits. I did obtain lab work to further evaluate for patient's symptoms. His CBC is remarkable for leukocytosis. I suspect that this is likely related to his otitis media. He is currently on antibiotics. Patient is afebrile. I have low suspicion for sepsis or meningitis or encephalitis. I have low suspicion for intra-abdominal infection such as appendicitis or diverticulitis. Patient's abdomen is soft and nontender on exam. No peritoneal signs. pt has no complaint of abdominal pain. No anemia. CMP remarkable for glucose of 113. No significant electrolyte abnormality or acute kidney injury. His magnesium is within normal range and his lipase is unremarkable. Patient was given IV fluids and Zofran. Prior to his fluids being done, patient hit his call light and asked to be discharged from the emergency department and states that he feels much better. I discussed lab work with the patient. I discussed with the patient that it is possible he also had a viral GI bug on top of his otitis media. I do not think the patient needs any abdominal imaging at this time due to benign abdominal exam. I do not think the patient needs CT of the brain as he has no dizziness at this time and has no focal neuro deficits on exam. Low suspicion for cva or tia. I have low suspicion for cardiac etiology such as ACS. Patient denies any chest pain or shortness of breath. I advised that the patient follow up with primary care provider and to return to the emergency department immediately for any new or worsening symptoms. Strict return precautions given. Patient was given the number to call to schedule an appointment with PCP. Patient is agreeable with this plan. I will send him home with a prescription of Zofran. Patient discharged home in stable condition. Disposition The patient was discharged and given RX. Counseled patient and family regarding lab results and suspected diagnosis. As well as the need for follow-up. Discharged home with verbal and written instructions. They were instructed to return as needed for persistent or worsening symptoms or any new concerns. Condition at disposition is stable. SIGNATURE: CRISPIN Jefferson) Jorge 05/01/19 0217 Normal [facility] Lipaseon 05-01-2019 Lipase [Catalytic activity/Vol] 16 U/L Normal 16-61 [facility] Magnesiumon 05-01-2019 Magnesium [Mass/Vol] 1.9 mg/dL Normal 1.7-2.3 [facility] Provider Note - ED v2on 04-18 Provider Note - ED v2 Provider Note - ED v2: Chart Review: ED NOTES ED NOTES: Chief Complaint: Ear pain. History of Present Illness: This is a pleasant, male patient who comes to the emergency department this evening for evaluation of left sided ear pain. Review of Systems All systems negative except as noted in HPI or elsewhere in the chart Constitutional: no fever, chills, weakness, dizziness Eyes: no redness, discharge, vision change, pain ENT: no sore throat, nosebleeds, rhinorrhea, hearing loss, +ear pain, ear discharge Cardiovascular: no chest pain, leg edema, palpitations Respiratory: no shortness of breath, cough, dyspnea on exertion, pleurisy, hemoptysis GI: no nausea, diarrhea, pain, vomiting, constipation, BRBPR, melena, heartburn : no dysuria, discharge, frequency, flank pain, hematuria, bleeding Musculoskeletal: no myalgia, neck/back pain, redness, arthralgia, inflammation Skin: no rash, bruising, contusions, swelling, lacerations, abrasions Neurological: no headache, numbness, change in function, weakness, AMS, paresthesias, speech change Psychiatric: no AMS, agitation, suicidal, confusion, depression, anxiety Metabolic: no fatigue, polyuria, hair change, dry skin, weakness, polydipsia, temperature intolerance Hematologic: no bleeding, nodes, bruising, petechiae Allergic: no rhinorrhea, sneezing, atopic dermatitis, frequent URIs PMFSH Nursing notes reviewed and confirmed by me. Past Medical History: Past Surgical History: LMP: G P Tetanus: UTD Family History: no DM, HTN, CAD, CVA, Cancer Social History: no smoking, alcohol use, substance abuse, lives alone, marital status Allergies and Medications: See nurses notes. Physical Exam Constitutional: Vital signs per nursing notes. Well developed, well nourished. No acute distress. Psychiatric: alert and oriented to person, place, and time; no abnormalities of mood or affect; memory intact Eyes: PERRL; conjunctivae and lids normal; EOMI ENT: otoscopic exam of external canal and TMs injected with erythema.; nasal mucosa, turbinates, and septum normal; mouth, tongue, and pharynx normal; pharynx without edema, exudate, or injection Neck: neck supple, no meningismus; trachea midline without deviation; no lymphadenopathy; no thyromegaly; carotid pulses even bilaterally Chest: no masses or tenderness, no discharge Respiratory: normal respiratory effort and excursion; no rales, rhonchi, or wheezes; equal air entry Cardiovascular: regular rate and rhythm; no murmurs, rubs or gallops; symmetric pulses; no edema; normal capillary refill; distal pulses present Neurological: normal speech; CN II-XII grossly intact; DTRs normal, no pathologic reflexes; normal motor and sensory function; no nystagmus; no pronator drift; normal finger to nose and heel to becerril tests GI: no masses, tenderness, rebound or guarding; no palpable, pulsatile mass; no organomegaly; no hernia; normal bowel sounds; (-) [place] sign; (-) McBurneys sign; (-) CVA tenderness : Lymphatic: no adenopathy of neck, axillae, groin Musculoskeletal: normal gait and station; normal digits and nails; no gross tendon or ligament injury; normal to palpation; normal strength/tone; neurovascular status intact; (-) Homans sign; (-) straight leg raise Skin: normal to inspection; normal to palpation; no rash HISTORY OF PRESENTING ILLNESS MITCHELL is a 18 year old Male and was seen by me at 30-Apr-2019 11:42 for a chief complaint of ear pain . The historian is the patient. Triage Information: Most recent Vital Sign Value Date Temp (F): 97.8 04-30-2019 11:35 Temp (C): 36.6 04-30-2019 11:35 Heart Rate (beats/min): 90 04-30-2019 11:35 Respirations (breaths/min): 18 04-30-2019 11:35 SpO2 (%): 97 04-30-2019 11:35 BP Systolic (mm Hg): 141 04-30-2019 11:35 BP Diastolic (mm Hg): 66 04-30-2019 11:35 Presenting Symptoms: earache. Patient denies anorexia, bruising, chills, congestion, deformity, dizziness, facial pain, FB sensation, fever, hearing problems, itching, mouth sores, sore throat and vision changes. Located in the left and ear(s) area. Quality is aching. Context is Unknown. The symptoms started today. The timing is sudden onset and constant. Modifying factors: There are no modifying factors. Pertinent history is none related to reason for visit. PAST MEDICAL HISTORY ATTESTATION: I have reviewed and confirmed nurse's/medic's notes for patient's medications, allergies, medical history, and surgical history ALLERGIES/INTOLERANCES : No Known Allergies HEALTH HISTORY: No documented data. OUTPATIENT MEDICATIONS: Home Medications Review Status for Reconciliation: Complete Med Status: Patient Currently Takes Medications Drug Name: amoxicillin-clavulanat e 875 mg-125 mg oral tablet Instructions: 1 tab(s) orally every 12 hours SIGNIFICANT EVENTS: Past Surgical History Description:APPENDECTO MY REVIEW OF SYSTEMS CONSTITUTIONAL: Negative for: anorexia and fever EYES: Negative for: vision changes ENMT Ears: POSITIVE for: pain Negative for: hearing disturbance Nose: Negative for: congestion Mouth/Teeth: Negative for: mouth lesions Throat/Neck: Negative for: throat pain NEUROLOGICAL: Negative for: dizziness; All other systems reviewed and are negative PHYSICAL EXAM CONSTITUTIONAL: Well appearing, well nourished, awake, alert, oriented to person, place, time/situation and in no apparent distress. HENMT: Ear: - LEFT TM BULGING - LEFT TM RED EYES: Clear bilaterally, pupils equal, round and reactive to light. CARDIOVASCULAR: Normal rate, regular rhythm. Heart sounds S1, S2. No murmurs, rubs or gallops. PMI non-displaced. RESPIRATORY: Breath sounds clear and equal bilaterally. GASTROINTESTINAL: Abdomen soft, non-distended, no rebound, no guarding. Bowel sounds normal in all 4 quadrants. GENITOURINARY: No CVA or Suprapubic tenderness is noted at this time. MUSCULOSKELETAL: Spine appears normal, range of motion is not limited, no muscle or joint tenderness. NEUROLOGICAL: Alert and oriented, no focal deficits, no motor or sensory deficits. SKIN: Skin normal color for race, warm, dry and intact. No evidence of trauma. PSYCHIATRIC: Alert and oriented to person, place, time/situation. normal mood and affect. No apparent risk to self or others. HEME/LYMPH: No adenopathy or splenomegaly. No cervical, supraclavicular or inguinal lymphadenopathy. RESULTS/VITAL SIGNS VITAL SIGNS: *Vital Signs have not been recorded in the last 5 hours MEDICAL DECISION MAKING/ED COURSE MDM/ED COURSE: Discussed the case and results with patient and or patient's family and importance of outpatient follow up care. Discussed Findings with: patient Data Reviewed: old records, vital signs and nurses notes Conducted Detailed Discussion with Patient and/or Guardian Regarding: lab results, need for surgery and return to ED if symptoms worsen, persist or questions arise CLINICAL IMPRESSION Diagnosis/Annotation: ED Dx Name:Otitis media Code:H66.90 Dispostion: discharged Type: home ATTESTATION CRITICAL CARE TIME Is this a critically ill patient: no Electronic Signatures: Yesika Collins () (Signed 24-May-2019 01:03) Authored: Provider Note - ED v2 Last Updated: 24-May-2019 01:03 by Yesika Collins () References: 1. Data Referenced From Triage - ED 30-Apr-2019 11:35 Normal [facility] Risk Screen - Adult Emergenc yon 04-30-2019 Risk Screen - Adult Emergency Preferred Language: Preferred Language: Preferred Language for Discussing Health Care (patient/designee)Engl oly Advanced Directives: Advance Directive/DNRno Family Violence Adult: Abuse Screen: Are you or have you been threatened or abused physically, emotionally, or sexually by anyoneno Learning Assessment (Patient): Learning Assessment (Patient): Patient is Able to be Assessed for Learningyes Factors Influencing Readiness to Learnacuteness of illness Factors that Impact Ability to Learnnone Devices/Methods Used to Communicatenone Learning Preferencesaudio Cultural Considerationsnone Developmental Considerationsnone Protestant Considerationsnone Learning Assessment (Other Learner): Learning Assessment (Other Learner): Other learner availableno Pressure Injury/TB/Substance: Pressure Injury: Pressure Injury Present on Admissionno Do you have a coughno Admission Risk Screen: Significant IndicatorsComplete CAGE: CAGE: Is this an injured patient at a Trauma Center ([facility]/[place]/[facility]/[place]): no Electronic Signatures: Gerry Perez (RN) (Signed 30-Apr-2019 11:46) Authored: Preferred Language, Advanced Directives, Family Violence Adult, Learning Assessment (Patient), Learning Assessment (Other Learner), Pressure Injury/TB/Substance, CAGE Last Updated: 30-Apr-2019 11:46 by Gerry Perez (RN) Normal [facility] Triage - EDon 04-30-2019 Triage - ED Chart Review: CHIEF COMPLAINT MITCHELL CHAIREZ is a Male patient with a chief complaint of ear pain. Triage Date/Time: 30-Apr-2019 11:35 Pain Rating (0-10): 6 = Moderate Vital Signs: Temperature: 97.8F ( 36.6C) taken temporal Blood Pressure: 141/66 Mean: Heart Rate: 90 Respiratory Rate: 18 Pulse Oximetry: 97% on room air, no respiratory support. Height: 6 feet 7.00 inches. 200.6 CM Weight: 161.1 pounds. Calculated 73.1 kg. (scale measurement) Calculated BMI (kg/m2): 18.165 Calculated BSA (m2) 2.02 Malik Coma Scale: Best Eye Response: (E4) spontaneous Best Motor Response: (M6) obeys commands Best Verbal Response: (V5) oriented Malik Score: 15 Patient has homicidal thoughts: no JENNIFER: 5 Symptoms Are Negative For: chills, congestion, cough, dizziness, fever, headache, ear itching, hearing problems, rhinorrhea and sore throat. Risk Screens Suicide Risk Screen In the Past Month: Have you wished you were or wished you could go to sleep and not wake up no In the Past Month: Have you had any actual thoughts of killing yourself no In Your Lifetime: Have you ever done anything, started to do anything, or prepared to do anything to end your life no Cason Fall Scale Screening Has the patient fallen before (or is the patient in the ED as a result of a fall) has not had a fall Does the patient have an impaired gait does not have impaired gait Is the patient cognitively impaired not cognitively impaired Interventions: Cason Fall Interventions: *patient oriented to surroundings and call system, * patient/family falls education completed and documented, *patients fall status communicated during bedside handoff, *whiteboard updated, *mode of toileting discussed with patient, *bed in low position with brakes locked, *call light in reach, * non-skid footwear PAIN Pain Scale Used: AIDAN Pain Rating (0-10): 6 = Moderate PRIMARY ASSESSMENT MITCHELL CHAIREZ's primary assessment is Within Normal Limits. The airway is open and patent. Breathing spontaneous and unlabored with clear breath sounds bilaterally. Circulation is normal with good peripheral pulses. Skin is warm and dry and color is normal for race. Past Medical History: Past Medical History Reviewedyes APPENDECTOMY: Past Surgical History, Active Electronic Signatures: Sulma Modi (CHULA) (Signed 30-Apr-2019 11:37) Authored: Triage, Past Medical History Last Updated: 30-Apr-2019 11:37 by Sulma Modi (CHULA) Normal [facility] Vital Signs Date Time Vital Sign Value Performing Clinician Facility 10-25-2024 16:41-0400 Body mass index (BMI) [Ratio] 19.74 kg/m2 Crystal Zaidi APRN.CNP Work Phone: [facility] 10-25-2024 16:41-0400 Body temperature 98.71 [degF] Crystal Zaidi APRN.CNP Work Phone: [facility] 10-25-2024 16:41-0400 Body weight 79.5 kg Crystal Zaidi APRN.CNP Work Phone: [facility] 10-25-2024 16:41-0400 Diastolic blood pressure 64 mm[Hg] Crystal Zaidi OPTICAL SCIENTIST.WASH PLANT OPERATOR Work Phone: [facility] 10-25-2024 16:41-0400 Heart rate 87 /min Crystal Zaidi OPTICAL SCIENTIST.WASH PLANT OPERATOR Work Phone: [facility] 10-25-2024 16:41-0400 Respiratory rate 18 /min Crystal Zaidi OPTICAL SCIENTIST.WASH PLANT OPERATOR Work Phone: [facility] 10-25-2024 16:41-0400 SaO2% (BldA) [Mass fraction] 100 % Crystal Zaidi OPTICAL SCIENTIST.WASH PLANT OPERATOR Work Phone: [facility] 10-25-2024 16:41-0400 Systolic blood pressure 95 mm[Hg] Crystal Zaidi OPTICAL SCIENTIST.WASH PLANT OPERATOR Work Phone: [facility] 10-25-2024 13:01-0400 Body height 200.66 cm No Primary Care Physician [facility] 10-25-2024 13:01-0400 Body mass index (BMI) [Ratio] 19.6 kg/m2 No Primary Care Physician [facility] 10-25-2024 13:01-0400 Body temperature 96.9 [degF] No Primary Care Physician [facility] 10-25-2024 13:01-0400 Body weight 79.19 kg No Primary Care Physician [facility] 10-25-2024 13:01-0400 Diastolic blood pressure 80 mm[Hg] No Primary Care Physician [facility] 10-25-2024 13:01-0400 Heart rate 104 /min No Primary Care Physician [facility] 10-25-2024 13:01-0400 Respiratory rate 18 /min No Primary Care Physician [facility] 10-25-2024 13:01-0400 SaO2% (BldA) [Mass fraction] 99 % No Primary Care Physician [facility] 10-25-2024 13:01-0400 Systolic blood pressure 122 mm[Hg] No Primary Care Physician [facility] 07-04-2024 11:47-0400 Diastolic blood pressure 78 mm[Hg] No Primary Care Physician [facility] 07-04-2024 11:47-0400 Heart rate 78 /min No Primary Care Physician [facility] 07-04-2024 11:47-0400 Respiratory rate 16 /min No Primary Care Physician [facility] 07-04-2024 11:47-0400 SaO2% (BldA) [Mass fraction] 98 % No Primary Care Physician [facility] 07-04-2024 11:47-0400 Systolic blood pressure 118 mm[Hg] No Primary Care Physician [facility] 07-04-2024 09:48-0400 Body height 200.66 cm No Primary Care Physician [facility] 07-04-2024 09:48-0400 Body mass index (BMI) [Ratio] 18.3 kg/m2 No Primary Care Physician [facility] 07-04-2024 09:48-0400 Body temperature 98.9 [degF] No Primary Care Physician [facility] 07-04-2024 09:48-0400 Body weight 74.11 kg No Primary Care Physician [facility] 07-01-2024 20:33-0400 Body height 200.66 cm No Primary Care Physician [facility] 07-01-2024 20:33-0400 Body mass index (BMI) [Ratio] 20.5 kg/m2 No Primary Care Physician [facility] 07-01-2024 20:33-0400 Body temperature 97.2 [degF] No Primary Care Physician [facility] 07-01-2024 20:33-0400 Body weight 82.64 kg No Primary Care Physician [facility] 07-01-2024 20:33-0400 Diastolic blood pressure 67 mm[Hg] No Primary Care Physician [facility] 07-01-2024 20:33-0400 Heart rate 85 /min No Primary Care Physician [facility] 07-01-2024 20:33-0400 Respiratory rate 18 /min No Primary Care Physician [facility] 07-01-2024 20:33-0400 SaO2% (BldA) [Mass fraction] 97 % No Primary Care Physician [facility] 07-01-2024 20:33-0400 Systolic blood pressure 112 mm[Hg] No Primary Care Physician [facility] 06-25-2023 00:09-0500 Body temperature 98.1 [degF] [facility] 06-25-2023 00:09-0500 Diastolic blood pressure 78 mm[Hg] [facility] 06-25-2023 00:09-0500 Heart rate 89 /min [facility] 06-25-2023 00:09-0500 Respiratory rate 12 /min [facility] 06-25-2023 00:09-0500 SaO2% (BldA) [Mass fraction] 100 % [facility] 06-25-2023 00:09-0500 Systolic blood pressure 120 mm[Hg] [facility] 06-24-2023 21:47-0500 Body height 200.66 cm [facility] 06-24-2023 21:47-0500 Body mass index (BMI) [Ratio] 20 kg/m2 [facility] 06-24-2023 21:47-0500 Body weight 80.9 kg [facility] 05-23-2020 23:23-0500 BMI (Body Mass Index) 18.93 kg/m2 [facility] 05-23-2020 23:23-0500 Body Temperature 98.4 [degF] [facility] 05-23-2020 23:23-0500 Body weight 76.[address] [facility] 05-23-2020 23:23-0500 BP Diastolic 87 mm[Hg] [facility] 05-23-2020 23:23-0500 BP Systolic 145 mm[Hg] [facility] 05-23-2020 23:23-0500 Height 200.7 cm [place], [place] 05-23-2020 23:23-0500 Pulse (Heart Rate) 83 /min [facility] 05-23-2020 23:23-0500 Pulse Oximetry 94 % [facility] 05-23-2020 23:23-0500 Respiratory Rate 16 /min [place], [place] Encounters Encounter Date Encounter Type Care Provider Facility Start: 10-26-2024 End: 10-26-2024 [facility]ulatory [facility] Facility[facility] Start: 10-26-2024 End: 10-26-2024 Patient encounter procedure OTTONIEL ALEXIS DO [facility] Start: 10-25-2024 End: 10-25-2024 Emergency department patient visit OTTONIEL ALEXIS DO [facility] Start: 10-25-2024 End: 10-25-2024 Patient encounter procedure Crystal Zaidi OPTICAL SCIENTIST.WASH PLANT OPERATOR Work Phone: [facility] Comment on above: Leg pain, bilateral (Primary Dx); Unspecified abnormalities of gait and mobility; Pain of lower extremity, unspecified laterality; Muscle weakness (generalized) Start: 10-25-2024 End: 10-25-2024 ambulatory CRYSTAL ZAIDI Facility:[facility] Start: 10-25-2024 End: 10-25-2024 Emergency department patient visit No Primary Care Physician -Emergency Department Work Phone: Start: 07-04-2024 End: 07-04-2024 Emergency department patient visit No Primary Care Physician -Emergency Department Work Phone: Start: 07-01-2024 End: 07-01-2024 Emergency department patient visit No Primary Care Physician -Emergency Department Work Phone: Start: 06-24-2023 End: 06-25-2023 Emergency department patient visit [facility] Work Phone: Start: 05-23-2020 End: 05-24-2020 Emergency department patient visit Stepan Wallace Work Phone: [facility] Comment on above: Back strain, initial encounter (Primary Dx) Procedures Date Procedure Procedure Detail Performing Clinician Start: 07-04-2024 SARS-CoV-2, Influenz a & RSV (PCR) No Primary Care Physician Start: 07-01-2024 Plain X-ray of finger N o Primary Care Physician Start: 05-23-2020 Radex ribs uni w/posteroant ch minimum 3 views Stepan Solis [place] Work Phone: Plan of Treatment Date Care Activity Detail Author Start: 12-17-2024 Influenza vaccination Influenza Vaccine (#1) [facility] Start: 07-04-2024 [facility] Start: 07-01-2024 [facility] Start: 12-18-2023 Covid-19 Vaccine ( season) Covid-19 Vaccine ( season) [facility] Start: 06-25-2023 [facility] Start: 12-18-2019 Influenza vaccination Flu vaccine (#1) [place], [place] Start: 2017 DTaP/Tdap/Td vaccine (1 - Tdap) DTaP/Tdap/Td vaccine (1 - Tdap) [place] Start: 2017 Pneumococcal vaccination Pneumococcal Vaccine (1 of 2 - PCV) [facility] Start: 2016 Anxiety Screening Anxiety Screening [facility] Start: 2016 Depression Screening Depression Screening [facility] Start: 2016 Hepatitis C screening Hepatitis C Screening [facility] Start: 2016 HIV screening HIV Screening [facility] Start: 2013 HIV screening HIV screen [place], [place] Start: 2013 HPV Vaccine (1 - Male 3-dose series) HPV Vaccine (1 - Male 3-dose series) [facility] Start: 2012 Peds To Adult Transition Annual Assessment Peds To Adult Transition Annual Assessment [facility] Start: 2010 Peds To Adult Transition Initial Discussion Peds To Adult Transition Initial Discussion [facility] Start: 2009 HPV vaccine (1 - Male 2-dose series) HPV vaccine (1 - Male 2-dose series) [place] Start: 2009 Urine microalbumin profile DTaP,Tdap,Td Vaccine (6 - Tdap) [facility] Start: 2004 Pneumococcal 0-64 years Vaccine (1 of 1 - PPSV23) Pneumococcal 0-64 years Vaccine (1 of 1 - PPSV23) [place] Start: 10-08-1999 Varicella vaccine (1 of 2 - 2-dose childhood series) Varicella vaccine (1 of 2 - 2-dose childhood series) [place] Start: 1998 Hepatitis C screening Hepatitis C screen [place], [place] Patient Education [facility] Work Phone: Patient referral [facility] Work Phone: Immunizations Immunization Date Immunization Notes Care Provider Renetta snider 11-29-2003 diphtheria, tetanus toxoids and acellular pertussis vaccine, unspecified formulation Crystal Zaidi OPTICAL SCIENTIST.WASH PLANT OPERATOR Work Phone: [facility] 11-29-2003 measles, mumps and rubella virus vaccine Crystal Zaidi OPTICAL SCIENTIST.WASH PLANT OPERATOR Work Phone: [facility] 11-29-2003 poliovirus vaccine, unspecified formulation Crystal Zaidi OPTICAL SCIENTIST.WASH PLANT OPERATOR Work Phone: [facility] 07-11-2000 diphtheria, tetanus toxoids and acellular pertussis vaccine, unspecified formulation Crystal Zaidi OPTICAL SCIENTIST.WASH PLANT OPERATOR Work Phone: [facility] 07-11-2000 haemophilus influenz ae type b vaccine, conjugate unspecified formulation Crystal Zaidi OPTICAL SCIENTIST.WASH PLANT OPERATOR Work Phone: [facility] 07-11-2000 hepatitis B vaccine, pediatric or pediatric/adolescent dosage Crystal Zaidi OPTICAL SCIENTIST.WASH PLANT OPERATOR Work Phone: [facility] 10-19-1999 measles, mumps and rubella virus vaccine Crystal Zaidi OPTICAL SCIENTIST.WASH PLANT OPERATOR Work Phone: [facility] 10-19-1999 poliovirus vaccine, unspecified formulation Crystal Zaidi OPTICAL SCIENTIST.WASH PLANT OPERATOR Work Phone: [facility] 05-27-1999 diphtheria, tetanus toxoids and acellular pertussis vaccine, unspecified formulation Crystal Zaidi OPTICAL SCIENTIST.WASH PLANT OPERATOR Work Phone: [facility] 05-27-1999 haemophilus influenz ae type b vaccine, conjugate unspecified formulation Crystal Zaidi OPTICAL SCIENTIST.WASH PLANT OPERATOR Work Phone: [facility] 05-27-1999 hepatitis B vaccine, pediatric or pediatric/adolescent dosage Crystal Zaidi OPTICAL SCIENTIST.WASH PLANT OPERATOR Work Phone: [facility] 02-09-1999 diphtheria, tetanus toxoids and acellular pertussis vaccine, unspecified formulation Crystal Zaidi OPTICAL SCIENTIST.WASH PLANT OPERATOR Work Phone: [facility] 02-09-1999 haemophilus influenz ae type b vaccine, conjugate unspecified formulation Crystal Zaidi OPTICAL SCIENTIST.WASH PLANT OPERATOR Work Phone: [facility] 02-09-1999 hepatitis B vaccine, pediatric or pediatric/adolescent dosage Crystal Zaidi OPTICAL SCIENTIST.WASH PLANT OPERATOR Work Phone: [facility] 02-09-1999 trivalent poliovirus vaccine, live, oral Crystal Zaidi OPTICAL SCIENTIST.[facility] Work Phone: [facility] 1998 diphtheria, tetanus toxoids and acellular pertussis vaccine, unspecified formulation Crystal Zaidi OPTICAL SCIENTIST.[facility] Work Phone: [facility] 1998 haemophilus influenz ae type b vaccine, conjugate unspecified formulation Crystal Zaidi OPTICAL SCIENTIST.WASH PLANT OPERATOR Work Phone: [facility] 1998 hepatitis B vaccine, pediatric or pediatric/adolescent dosage Crystal Zaidi OPTICAL SCIENTIST.[facility] Work Phone: [facility] 1998 trivalent poliovirus vaccine, live, oral Crystal Zaidi OPTICAL SCIENTIST.[facility] Work Phone: [facility] 1998 hepatitis B vaccine, pediatric or pediatric/adolescent dosage Crystal Zaidi OPTICAL SCIENTIST.[facility] Work Phone: [facility] Payers Date Payer Category Payer Private Health Insurance [id number] 2024 [facility] BLUE CARD PPO OOS [id number] 2024 Unknown [id number] 2024 Self-pay [id number] 2019 Unknown [id number] 1998 Unknown [id number] 1998 Unknown [id number] Unknown [id number] Unknown [id number] Unknown [id number] Unknown [id number] Social History Date Type Detail Facility Start: 05-23-2020 End: 10-25-2024 Tobacco smoking status KYIS Current every day smoker [facility] History of tobacco use Cigarette Smoker [place], [place] Start: 05-23-2020 End: 10-25-2024 Cigarettes smoked current (pack per day) - Reported [place], [place] Start: 05-23-2020 End: 10-25-2024 Tobacco use and exposure Never used [place] Start: 05-23-2020 Alcohol intake Current non-dr social scientist of alcohol (finding) [place] Start: 1998 Sex Assigned At Not on file [place], [place] Exposure to SARS-CoV -2 (event) Not sure [place] Start: 06-24-2023 Tobacco smoking stat us KYIS Unknown if ever smoked [facility] Start: 2000 Sex Assigned At Male W [facility] Start: 07-01-2024 End: 10-25-2024 Sex Male (finding) [facility] Start: 10-25-2024 Alcoholic beverage intake Ex-drinker (finding) [facility] Start: 10-25-2024 Tobacco use panel [facility] Tobacco Nicotine Use: Va ping Product in Last 90 Days. Type: Electronic Cigarettes (Vaping). [facility] Tobacco smoking status [facility] Mental Status Date Assessment Result Facility 07-04-2024 Cognitive function Level Of Cons ciousness Awake;Alert;Appropriate;Follow s Commands [facility] Work Phone: 06-24-2023 Cognitive function Level Of Cons ciousness Awake;Alert;Appropriate;Follow s Commands [facility] Work Phone: Clinical Notes 06-25-2023 to 10-26-2024 Note Date & Type Note Facility 10-26-2024 Note Exam Date Time Procedure Performing Provider Status 10/26/24 4:29 PM VL Venous US/Doppler Both Legs(for DVT) KRYSTAL PAPPAS MD; Auth (Verified) [facility]07-10-2025 Hospital Discharge instructions Patient Education 10/25/2024 20:16:59 Becerril Splints Becerril Splints (Medial Tibial Stress Syndrome) Pain felt in the front of your lower leg is often called becerril splints. One common cause of this pain is tendinitis. This is the inflammation of tendons. These are the tough, cordlike bands of tissue that connect muscle to bone. When the tendons of the muscles near the shinbone (tibia) become inflamed, the pain is felt along the becerril. Becerril splints often affect athletes and runners and are commonlydue to overuse. A less common cause is flat feet with low arches. Symptoms of becerril splints Symptoms of becerril splints often start as a dull ache that gets worse over time. Pain may also be sharp or stabbing. Resting your legs often relieves the symptoms. Pain may occur both during or after activity. Later, the pain may become continuous with almost any activity. Your evaluation Your healthcare provider will ask you questions about your activities and your health history. Tellyour provider about possible injuries. The diagnosis is often made through the history and physicalexam. There are no tests for becerril splints. But your provider may want to do some tests to rule out a stress fracture in your shinbone. These tests may include an X-ray, bone scan, or MRI. Treating becerril splints Follow these and any other instructions you are given. Rest. Cut down on running and high-impact sports. Or stop doing these things completely to let yourlegs rest and the injury heal. Ice. Put ice on the painful areas. Ice for 15 minutes every 3 hours. To make an ice pack, put ice cubes in a plastic bag that seals at the top. Wrap the bag in a clean, thin towel or cloth. Never putice or an ice pack directly on the skin. Medicines. Take nonsteroidal anti-inflammatory medicines (NSAIDs), such as ibuprofen, as directed by your healthcare provider. Preventing becerril splints To help prevent becerril splints in the future: Warm up before you run. Do gentle calf-stretching exercises. Be careful not to overtrain. Don't run on hard or uneven surfaces. If you have flat feet or low arches, consider orthotics or insoles for correction. Use running shoes with good support and cushioned soles. Replace old or worn shoes. [id number] [employer]. [address] [place] [address]. All rights reserved. This information is not intended as a substitute for professional medical care. Always follow yourhealthcare professional's instructions. Follow Up Care 10/25/2024 18:46:19 With:Go to emergency room if symptoms worsen Address:Unknown When:2-4 days With:BALTAZAR RAJPUT DO Address: [address] [facility] [place] [address]- [phone] When:2-4 days [facility] 07-10-2025 Emergency department Discharge summary Discharge Instructions Thank you for allowing [facility] to assist you with your healthcare needs. The following is importantdischarge information regarding your hospital visit. Diagnosis from Today's Visit Pain in both lower legs What to Do Next Instructions from Your Care Team You are given an order for an outpatient vas or ultrasound to assess for DVTs. You are also prescribed short course of naproxen anti-inflammatories for use for discomfort. Please monitor for any acute worsening symptoms including development of any weakness to the extremities, overlying skin changes including redness, warmth or development of fevers or chills or other acute concerns. If any of these develop please have repeat assessment either with PCP or or in the emergency department. Discharge ED Outpatient Vascular Lab - Ordered -- Test Requested: dvt study bilateral LEs, Lower extremity, Bilateral, Test Reason: Pain, Mon-Fri 8am-4:30pm: Call [phone] at 7:30am to schedule a same day appointment for testing. Please be aware there may be a short wait time., Weekend Holiday 8... Discharge Return to Work, School, or Sports (Return to Work, School, or Sports) - Ordered -- 10/26/24, May return to: work, 10/25/24 20:17:00 EDT Post Acute Orders No qualifying data available. You Need to Schedule the Following Appointments Follow Up with Go to emergency room if symptoms worsen When:Within 2-4 days Follow Up with BALTAZAR RAJPUT DO When:Within 2-4 days Where:[address] [place] [address]- [phone] Allergies NKA Medications Please ask your primary doctor or pharmacist before taking any other medication not listed, including over the counter drugs, herbal medications, vitamins and or supplements as they may interact withyour home medications. What How Much When Instructions Last Dose New naproxen (naproxen 500 mg oral tablet) 1 tab(s) by mouth Twice daily with meals Duration: 7 Days Printed Prescription Please take this list to your next doctor s visit. Bring all medications you take, including over the counter medications, herbals and other supplements with you to your doctor s visit. Patients and families are reminded to discard old lists and to update any records with all medication providers or retail pharmacies. Education Materials Becerril Splints (Medial Tibial Stress Syndrome) Pain felt in the front of your lower leg is often called becerril splints. One common cause of this pain is tendinitis. This is the inflammation of tendons. These are the tough, cordlike bands of tissue that connect muscle to bone. When the tendons of the muscles near the shinbone (tibia) become inflamed, the pain is felt along the becerril. Becerril splints often affect athletes and runners and are commonlydue to overuse. A less common cause is flat feet with low arches. Symptoms of becerril splints Symptoms of becerril splints often start as a dull ache that gets worse over time. Pain may also be sharp or stabbing. Resting your legs often relieves the symptoms. Pain may occur both during or after activity. Later, the pain may become continuous with almost any activity. Your evaluation Your healthcare provider will ask you questions about your activities and your health history. Tellyour provider about possible injuries. The diagnosis is often made through the history and physicalexam. There are no tests for becerril splints. But your provider may want to do some tests to rule out a stress fracture in your shinbone. These tests may include an X-ray, bone scan, or MRI. Treating becerril splints Follow these and any other instructions you are given. Rest. Cut down on running and high-impact sports. Or stop doing these things completely to let yourlegs rest and the injury heal. Ice. Put ice on the painful areas. Ice for 15 minutes every 3 hours. To make an ice pack, put ice cubes in a plastic bag that seals at the top. Wrap the bag in a clean, thin towel or cloth. Never putice or an ice pack directly on the skin. Medicines. Take nonsteroidal anti-inflammatory medicines (NSAIDs), such as ibuprofen, as directed by your healthcare provider. Preventing becerril splints To help prevent becerril splints in the future: Warm up before you run. Do gentle calf-stretching exercises. Be careful not to overtrain. Don't run on hard or uneven surfaces. If you have flat feet or low arches, consider orthotics or insoles for correction. Use running shoes with good support and cushioned soles. Replace old or worn shoes. [id number] [employer]. [address] [place] [address], [place] [address]. All rights reserved. This information is not intended as a substitute for professional medical care. Always follow yourhealthcare professional's instructions. Additional Information VACCINATE! IT SAVES LIVES! Members of the community who have not yet received the COVID-19 vaccine and would like to receive it can visit one of [facility] vaccine clinics. There are many vaccine clinic locations within the [facility]. For locations and available times, please visit www.gettheshot.coronavirus.[place].gov/. It is important to note that some COVID mobile vaccine clinics are held outdoors and may be canceled in rainy or stormy conditions. To learn more about pediatric vaccinations (ages 5-11), we invite you to visit the [facility] webpage. https://www.Jobrs.org/pages/[email or web address]-[email or web address]-[email or web address] stions.htmlTo learn more about the COVID-19 vaccine, we invite you to visit the CDC website for a list of frequently asked questions. https://www.cdc.gov/coronavirus/2019-ncov/vaccines/faq.html [facility] Patient Portal Access Instructions: Stay connected with your healthcare team and access your personal medical information anytime with the [facility] Patient Portal. If you would like a full copy of your medical records please contact the [facility] Medical Records Department Tuesday through Tuesday between 8a.m. and 4:30p.m. Please follow the directions below to access the portal: 1.Access the email account you provided upon registration to the hospital.2.Look for an invitation email from [facility].3.Open the email and access the invitation link: Accept Invitation to [facility]4.Fill in the required germain to create your account. Sign into [email or web address] with your username and password that you created in the above steps to stay up to date. You can then view a summary of results, a summary of your visits, and the ability to download your summaries to your computer or send the information securely to a physician. Remember that your healthcare information is confidential, so carefully consider who you will allow to register on the [facility] Patient Portal for access to your information. You can also access the [facility] Patient Portal on the [employer]. Simply click on Health Records under StudyMaxData and then click on the [employer] logo. HOW TO SAFELY DISPOSE OF PRESCRIPTION MEDICATIONS Please use one of the following methods to safely dispose of your unused medications. 1.Use a drug disposal kit: the drug disposal pouch allows you to safely discard your old and unuseddrugs. Ask your nurse to give you one when you are discharged.2.Visit a local take-back location: Many local pharmacies and police departments have programs that collect old and unwanted prescriptiondrugs. Call your local pharmacy or go to http://Gridstore.Be At One/0U1Cf8g to find one close to you.3.Make use of household items: Use cat litter or old coffee grounds to dispose medications if other options arenot available. Mix your drugs with these household products, seal them in an airtight container andthrow it into the garbage. Call [facility]: [phone] to be sure your drugs can be disposed of in this way. Some medicines may require a different approach.4.Never flush your medications down the toilet. IF YOU HAVE BEEN PRESCRIBED AN OPIOIDS FOR PAIN If you have been prescribed an opioid (such as hydrocodone, oxycodone or morphine), it is critical to understand the possible side effects and risks of opioid pain medications. Even when taken as directed, opioids can have several side effects including: Tolerance, meaning you might need to take more of a medication for the same pain relief. Nausea, vomiting and/or constipation. Sleepiness, dizziness, dry mouth, confusion, depression or itching. Physical dependence, meaning you have withdrawal symptoms when a medication is stopped ? this can develop within a few days. KNOW YOUR RESPONSIBILITIES It is important to know exactly how much and how often to take the opioid pain medications you are prescribed. Never take opioids in higher amounts or more often than prescribed. Do not combine opioids with alcohol or other drugs that cause drowsiness, such as benzodiazepines, also known as benzos,including diazepam and alprazolam, muscle relaxants or sleep aids. Never sell or share prescriptionopioids. This is illegal. Store opioids in a secure place and out of reach of others (including children, family, friends and visitors). The last page(s) of this document has been signed and retained as a CHART COPY Signatures Patient Education Materials Becerril Splints Medication Leaflets My discharge plan and instructions have been reviewed and explained to me and I,POZWORSKI, MITCHELL M understand my current condition and have read and understand these discharge instructions. I have received a written copy of the plan/instructions. If I have questions, I am aware that I should contact my doctor. Patient/Watch Train Assembler Signature: Date/Time: Relationship to Patient: Witness Name/Signature: Date/Time: [facility]07-10-2025 NoteHNO ID: [id number] Author: CRYSTAL ZAIDI APRN.WASH PLANT OPERATOR Service: ? Author Type: Nurse Practitioner Type: Progress Notes Filed: 10/25/2024 17:11 Note Text: [facility] Subjective Mitchell Chairez is a 24 year old male. Patient presents with: Pain: Bilateral lower legs x1 week, L worse, denies injury HPI Bilateral Leg Pain: - Onset last , progressively worsening. - Severe pain in the right leg, described as shooting pain from the front of the leg to the hip. - Right leg has almost given out three times today; struggling to walk. - Left leg pain is less severe, localized to the front of the leg and tender to touch. - Denies swelling in either leg. - No relief from ibuprofen or muscle relaxers. - Denies known trauma or injury. - Works at [employer] in [place], walking on uneven ground for the past month. - Has new boots but does not wear them often; same type as previous boots. - No significant past medical history; not on any daily medications. - Visited [facility] today around noon but left after waiting for two hours. No past medical history on file. PAST SURGICAL HISTORY Procedure Laterality Date APPENDECTOMY HX ALLERGIES Patient has no known allergies. MEDICATIONS ondansetron orally disintegrating (ZOFRAN ODT) 4 mg disintegrating tablet Take 1 tablet by mouth every 4 hours as needed for Nausea/Vomiting. (Patient not taking: Reported on 10/25/2024) No family history on file. Social History Tobacco Use Smoking status: Every Day Smokeless tobacco: Never Vaping Use Vaping status: Former Substance Use Topics Alcohol use: Not Currently Drug use: Not Currently Review of Systems Musculoskeletal: (+) bilateral lower extremity pain radiating to hip, (+) anterior lower leg tenderness, (+) leg weakness with episodes of giving way, (+) difficulty walking, (-) lower extremity swelling Objective BP 95/64 Pulse 87 Temp 37.1 ?C (98.7 ?F) Resp 18 Wt 79.5 kg (175 lb 4.3 oz) SpO2 100% BMI 19.74 kg/m? Physical Exam General: No acute distress. MSK/Ext: Bilateral lower extremity tenderness to palpation, more severe on the right; no swelling noted. { 1. Leg pain, bilateral (M79.604) 2. Pain of lower extremity, unspecified laterality (M79.606) - Severe pain in both legs, more pronounced in the right leg, with tenderness to palpation and pain radiating to the hip. - No visible swelling or history of trauma. - Differential diagnoses include electrolyte imbalances, rhabdomyolysis, and dehydration. - Referred to the emergency room for further evaluation, including stat lab work to assess kidney function and rule out rhabdomyolysis. 3. Unspecified abnormalities of gait and mobility (R26.9) 4. Muscle weakness (generalized) (M62.81) - Right leg has given out multiple times today, causing difficulty with ambulation. - Advised immediate evaluation in the emergency room to determine underlying cause. and Recording using ambient [employer] software for draft documentation of the visit was discussed with the patient/authorized medical collections representative; all questions welcomed and answered. Patient/authorized medical collections representative agreed to proceed [facility] History of Present illness Narrative* Crystal Zaidi APRN.WASH PLANT OPERATOR - 10/25/2024 5:07 PM EDT [facility] Medrano Enrique Chairez is a 24 year old male. Patient presents with: Pain: Bilateral lower legs x1 week, L worse, denies injury HPI Bilateral Leg Pain: - Onset last , progressively worsening. - Severe pain in the right leg, described as shooting pain from the front of the leg to the hip. - Right leg has almost given out three times today; struggling to walk. - Left leg pain is less severe, localized to the front of the leg and tender to touch. - Denies swelling in either leg. - No relief from ibuprofen or muscle relaxers. - Denies known trauma or injury. - Works at [employer] in [place], walking on uneven ground for the past month. - Has new boots but does not wear them often; same type as previous boots. - No significant past medical history; not on any daily medications. - Visited [place] [facility] today around noon but left after waiting for two hours. No past medical history on file. PAST SURGICAL HISTORY Procedure Laterality Date APPENDECTOMY HX ALLERGIES Patient has no known allergies. MEDICATIONS ondansetron orally disintegrating (ZOFRAN ODT) 4 mg disintegrating tablet Take 1 tablet by mouth every 4 hours as needed for Nausea/Vomiting. (Patient not taking: Reported on 10/25/2024) No family history on file. Social History Tobacco Use Smoking status: Every Day Smokeless tobacco: Never Vaping Use Vaping status: Former Substance Use Topics Alcohol use: Not Currently Drug use: Not Currently Review of Systems Musculoskeletal: (+) bilateral lower extremity pain radiating to hip, (+) anterior lower leg tenderness, (+) leg weakness with episodes of giving way, (+) difficulty walking, (-) lower extremity swelling Objective BP 95/64 Pulse 87 Temp 37.1 C (98.7 F) Resp 18 Wt 79.5 kg (175 lb 4.3 oz) SpO2 100% BMI19.74 kg/m Physical Exam General: No acute distress. MSK/Ext: Bilateral lower extremity tenderness to palpation, more severe on the right; no swelling noted. { 1. Leg pain, bilateral (M79.604) 2. Pain of lower extremity, unspecified laterality (M79.606) - Severe pain in both legs, more pronounced in the right leg, with tenderness to palpation and painradiating to the hip. - No visible swelling or history of trauma. - Differential diagnoses include electrolyte imbalances, rhabdomyolysis, and dehydration. - Referred to the emergency room for further evaluation, including stat lab work to assess kidney function and rule out rhabdomyolysis. 3. Unspecified abnormalities of gait and mobility (R26.9) 4. Muscle weakness (generalized) (M62.81) - Right leg has given out multiple times today, causing difficulty with ambulation. - Advised immediate evaluation in the emergency room to determine underlying cause. and Recording using ambient [employer] software for draft documentation of the visit was discussed with the patient/authorized medical collections representative; all questions welcomed and answered. Patient/authorized medical collections representative agreed toproceed MDM [facility] Discharge summary [facility] Medical Records Department [address] [place] [address] Emergency Department Summary 07/04/24 MR#: [id number] Acct: [id number] Name: MITCHELL CHAIREZ Rep #:[id number] : 2000 23 From: Seamus Ansari DO PCP: Care Physician,No Primary Status :REG ER Location: ED HPI History of Present Illness Chief Complaint: General Illness Narrative Narrative: Patient is a 23-year-old male with a past medical history of ADHD who presented to the emergency department the chief complaint of nausea vomiting diarrhea. Patient states that his symptoms started yesterday and he was up all night with vomiting and diarrhea. He states that his kids have been ill recently. Patientstates that he has had his appendix taken out but denies any other surgeries. Deniesabdominal pain. Patient states that he needs a work note [facility] Medical History ADHD Home Medications ?Medication ?Instructions ?Recorded ?Last Taken ?Type cephalexin 500 mg capsule 500 mg PO Q6 #40 CAPSULES Unknown Rx dicyclomine 20 mg tablet 20 mg PO TID PRN abdominal p ain 07/04/24 Unknown Rx #20 tabs ondansetron 4 mg disintegrating 4 mg PO Q6H PRN nausea and 07/04/24 Unknown Rx tablet vomiting #20 tabs Allergy/AdvReac Type Severity Reaction Status Date / Time No Known Allergies Allergy Verified 07/04/24 09:48 Surgical History History of appendectomy Social History household members: spouse and children Smoking Status: Current every day smoker tobacco type: e-cigarettes Electronic Cigarette Use: with nicotine substance use type: does not use ROS ROS ED ROS Narrative Constitutional: Denies any fevers, chills, headaches Eyes: Denies change in vision double vision blurry vision Cardiovascular: Denies chest pain or palpitations Respiratory: Denies coughing wheezing shortness of breath Abdomen: Complains of nausea vomiting diarrhea as noted above denies abdominal pain Neurological: Denies any numbness, discontinuing Musculoskeletal: Denies back pain Skin: Denies rashes or lesions EXAM Physical Exam Narrative Exam Narrative: General: Patient lying in bed rest comfortably. In acute distress Head: Atraumatic, normocephalic Eyes: PERRL bilateral, EOMI bilateral, no conjunctival injection noted Neck: Soft, supple, trachea midline Cardiovascular: Regular rate and rhythm no murmurs gallops rubs noted Respiratory: Clear to auscultation bilaterally Abdomen: Soft, nondistended, nontender to palpation Neurological: Patient follow commands knew that he was at [facility] year is 2024 Skin: Warm, dry, intact Const Vital Signs: 07/04/24 09:48 07/04/24 10:47 07/04/24 11:47 Temperature 98.9 F Temperature Source Oral Pulse Rate 74 78 Respiratory Rate 18 16 Respiratory Effort Normal Respiratory Pattern Normal Blood Pressure 102/57 L 118/78 Blood Pressure Mean 72 91 Pulse Ox 98 98 Oxygen Delivery Method Room Air Room Air MDM MDM MDM Narrative Medical decision making narrative: Patient is a 23-year-old male who presents to the emerged part with chief complaint nausea vomitingdiarrhea since yesterday. On the differential diagnosis includes but not limited to COVID, flu, viral gastroenteritis secondary to other viral illness. Once workup is obtained reviewed he will be reevaluated. Patient be given ODT Zofran. Patient tested negative for COVID flu RSV. On reevaluation the patient he is feeling much better would like to go home at this point time. Patient will be provided work note, prescriptions for Zofran and Bentyl. He is advised to start bland diet and advance as tolerated. He is advised to return with worsening symptoms or concerns. He was given a physicianto follow-up with as well. He is agreeable to plan all question concerns answered he is discharged home in stable condition. Discharge Plan Triage Chief Complaint: General Illness ED Provider: Seamus Ansari Dx/Rx/DC Orders Clinical Impression: Nausea & vomiting, Diarrhea Prescriptions: New ondansetron 4 mg tablet,disintegrating 4 mg PO Q6H PRN (Reason: nausea and vomiting) Qty: 20 0RF dicyclomine 20 mg tablet 20 mg PO TID PRN (Reason: abdominal pain) Qty: 20 0RF No Action cephalexin 500 mg capsule 500 mg PO Q6 Qty: 40 0RF Primary Care Provider: Care Physician,No Primary Referrals: Care Physician,No Primary [Primary Care Provider] - Crystal Rodriguez Татьяна, OIL FIELD ROUSTABOUT-C [[facility]] - Activity Restrictions/Additional Instructions: You tested negative for COVID flu and RSV. Prescriptions were sent to your pharmacy use them as prescribed. Start with a bland diet and advance as tolerated. You likely have a viral illness causing your symptoms. Return with worsening symptoms or concerns otherwise follow-up with the doctor you referred to. Print Language: Urdu Disposition Disposition: Home, Self Care What to do if you have Problems For any increased pain, shortness of breath, bleeding, nausea or vomiting, chestpain, or any unexpected problems, contact your Primary Care Provider. Call [facility] ([phone]) or report tothe closest Emergency Room. Call 911 if necessary. 07/04/24 1236 Cosigner Signature (if applicable): CC: No Primary Care Physician ~ Signed [facility]03-16-2025 Discharge summary [facility] Medical Records Department [address] [place] [id number] Emergency Department Summary 07/01/24 MR#: [id number] Acct: [id number] Name: MITCHELL CHAIREZ Rep #:[id number] : 2000 From: Jeffery Childers PCP: Care Physician,No Primary Status :REG ER Location: ED HPI History of Present Illness Chief Complaint: Upper Extremity Injury Narrative Narrative: Patient is a 23-year-old male with no significant medical history, last tetanus vaccination was 1 month ago. 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 When he had a foreign body placed inhis right thumb. Patient states that he tried to get it out however he is unsure if he did. Now is more swollen, red is here for evaluation [facility] Medical History (Updated 07/01/24 @ 21:03 by LUANNE Delacruz) ADHD Home Medications ?Medication ?Instructions ?Recorded ?Last Taken ?Type NK 09/27/20 Unknown History cephalexin 500 mg capsule 500 mg PO Q6 #40 CAPSULES Unknown Rx Allergy/AdvReac Type Severity Reaction Status Date / Time No Known Allergies Allergy Verified 07/01/24 20:33 Surgical History History of appendectomy Social History (Updated 06/24/23 @ 21:[address] Marco Lemus MD) household members: spouse and children Smoking Status: Current every day smoker tobacco type: e-cigarettes Electronic Cigarette Use: with nicotine substance use type: does not use ROS ROS ED ROS Narrative Constitutional: Negative for fever, chills, weight loss, weakness Eyes: Negative for vision loss, vision change, double vision ENT: Negative for any sore throat, ear pain, congestion Cardiovascular: Negative for any chest pain, tightness, palpitations Respiratory: Negative for any cough, sputum production, hemoptysis, dyspnea, dyspnea on exertion, orthopnea Gastrointestinal: Negative for any abdominal pain, nausea, vomiting, diarrhea, constipation, blood in stool, blood in vomit : Negative for any urinary frequency, dysuria, retention, blood in urine Muscle skeletal: Negative for any neck pain, back pain. Positive right thumb pain Neurological: Negative for any headache, syncope, dizziness. Skin: Negative for any rashes, itching, abrasions, lacerations. Positive for swelling, erythema to the right thumb Psychiatric: Negative for any depression, anxiety, stress, suicidal ideation, homicidal ideation Hematologic: Negative for any excessive bruising, easy bleeding EXAM Physical Exam Const Vital Signs: 07/01/24 20:33 Temperature 97.2 F L Temperature Source Temporal Pulse Rate 85 Respiratory Rate 18 Blood Pressure 112/67 Blood Pressure Mean 82 Pulse Ox 97 Oxygen Delivery Method Room Air Physical Exam Narrative Exam Narrative: Vital signs reviewed. Extremities: No peripheral edema, no signs of gross trauma or deformity. Activefull range of motionof all extremities. Patient does have what appears to be asmall little abscess to the pad of the right thumb. There is no foreign body noted on initial evaluation. Patient has no patient is full range of motion. +2 radial pulse Neuro: Cranial nerves II through XII intact, no focal neurological deficits. Skin: Clean dry and intact with no rash, purpura, petechiae, vesicles or pustules. Backs/flank: No CVA tenderness, no midline spinal tenderness, no deformity. Psych: Normal mood and affect. No SI, HI or acute psychosis. MDM MDM MDM Narrative Medical decision making narrative: I have personally performed a face to face assessment of the patient and have reviewed the WOLF Note. I performed a substantive portion of the visit including all aspects of the following. My alarcon findings include: History: Patient presents with redness and swelling to the pad of the right thumb. Patient states he had a metallic splinter into his thumb a couple days ago. Patient states he was able to pull out some of the metal fragment. Patient states he has some increased redness and swelling over the area. Patient denies any paresthesias or weakness. Patient denies any fevers or chills. Exam: Vital signs are stable. Patient is afebrile. Patient is in no acute distress. Skin is warm and dry. There is some erythema and edema over the volar aspect of the proximal fortune of the distal phalanx of the right thumb. There is minimal drainage. There is no foreign body noted. There is goodrangeof motion of the IP and MP joints of the right thumb. Sensation was intact to light touch in all digits. Capillary refill was less than 2 seconds in all digits. Medical Decision Making: Differential diagnosis includes abscess, retained foreign body, and cellulitis. X-rays of the right thumb will be obtained to assess for retained foreign body. Patient was given a dose of Keflex. X-rays of the right thumb were obtained. There are 3 views. On my independent i nterpretation, there is no radiopaque foreign body. There is no acute fracture. There is some soft tissue swelling noted. Radiologist also interpreted the x- rays and agrees. The pad of the right thumb was cleaned with chlorhexidine. A small incision wasmade using the tip of a 18-gauge needle. This was done by the WOLF under my supervision. Patient was given a prescriptionfor Keflex. Patient was instructed to use warm compresses to the area. Patient was instructed to follow-up with his primary care physician in 5 to 7 days. Patient understood and was agreeable with the plan. All questions were answered. MDM Treatment and Re-Evaluation Narrative: Differential diagnosis includes however is not limited to: Foreign body, abscessformation, cellulitis Patient appears generally well, vital signs are stable, patient is nontoxic- appearing. Presenting to the emergency department with complaints of concern for foreign body, infection to the right thumb. X-rays will be obtained. All radiologic examinations were read, reviewed by the emergency department attending. From these reads, a plan of care will be put in place. Patient's x-ray showed no acute foreign body. I was able to cleanse the area with alcohol. I was able to use a 18-gauge needle, was able to take off the roof of the swelling, where it came to ahead. I was able to get small amount ofyellow discharge. Patient will keep using warm compresses, soapy water for cleansing. Patient placed on Keflex 4 times a day for 10 days. Struck to return for any worsening symptoms. Stable for discharge. Discharge Plan Triage Chief Complaint: Upper Extremity Injury ED Midlevel Provider: Manoj Ramon ED Provider: Jeffery Villafuerte Dx/Rx/DC Orders Clinical Impression: Cellulitis of right thumb Instructions: ED Cellulitis Prescriptions: New cephalexin 500 mg capsule 500 mg PO Q6 Qty: 40 0RF No Action NK Primary Care Provider: Care Physician,No Primary Referrals: Care Physician,No Primary [Primary Care Provider] - Activity Restrictions/Additional Instructions: Please ensure use of warm compress. Clean with soapy water. The antibiotics are taken until the bottle is empty. Return for any worsening redness, fever chills nausea or vomiting. Print Language: Urdu Disposition Disposition: Home, Self Care What to do if you have Problems For any increased pain, shortness of breath, bleeding, nausea or vomiting, chestpain, or any unexpected problems, contact your Primary Care Provider. Call [employer] [facility] ([phone]) or report tothe closest Emergency Room. Call 911 if necessary. 07/01/242114 Cosigner Signature (if applicable): 07/01/242103 CC: No Primary Care Physician ~ Signed [facility]03-16-2025 Radiology Diagnostic study note [facility] Imaging Services [address] [place] [address] Finger(s) Min 2 Views MR#: [id number] Acct: [id number] Name: MITCHELL CHAIREZ Rep #: [id number] : 2000 M 23 From: Chandler Lucio MD PCP: Care Physician,No Primary Status: REG ER Study:Finger(s) Min 2 Views Date of Exam: 07/01/24 Exam# [id number] Ordering Dr: Manoj Luong PROCEDURE: FINGER(S) MIN 2 VIEWS REASON FOR EXAM: SPLINTER RIGHT THUMB TECHNIQUE: 3 view(s) of the right 1st ray, thumb COMPARISON: None FINDINGS: No radiopaque foreign body identified. The osseous structures appear within limits. Joint spaces appear within limits. RAD/Finger(s) Min 2 Views IMPRESSION: No radiopaque foreign body identified. Reading Location: [id number] CC: LUANNE Ramon; No Primary Care Physician ~ Public Health Representative: Signed [facility]03-16-2025 Discharge summary Author Jeffery Villafuerte [facility] Note Date/Time July 01, 2024 9:1 5pm [facility] Medical Records Department [address] [facility] [place] [address] Emergency Department Summary 07/01/24 MR#: [id number] Acct: [id number] Name: MITCHELL CHAIREZ Rep #:[id number] : 2000 23 From: Jeffery Childers PCP: Care Physician,No Primary Status :REG ER Location: ED HPI <Dr. Jeffery Villafuerte DO - Last Filed: 07/01/24 21:14> History of Present Illness Chief Complaint: Upper Extremity Injury <LUANNE Delacruz - Last Filed: 07/01/24 21:04> Narrative Narrative: Patient is a 23-year-old male with no significant medical history, last tetanus vaccination was 1 month ago. 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 Patient states that he tried to get it out however he is unsure if he did. Now is more swollen, red is here for evaluation [facility] <Dr. Jeffery Villafuerte DO - Last Filed: 07/01/24 21:14> [facility] Medical History (Updated 07/01/24 @ 21:03 by LUANNE Delacruz) ADHD Home Medications ?Medication ?Instructions ?Recorded ?Last Taken ?Type NK 09/27/20 Unknown History cephalexin 500 mg capsule 500 mg PO Q6 #40 CAPSULES Unknown Rx Allergy/AdvReac Type Severity Reaction Status Date / Time No Known Allergies Allergy Verified 07/01/24 20:33 Surgical History History of appendectomy Social History (Updated 06/24/23 @ 21:[address] Marco Lemus MD) household members: spouse and children Smoking Status: Current every day smoker tobacco type: e-cigarettes Electronic Cigarette Use: with nicotine substance use type: does not use ROS <LUANNE Delacruz - Last Filed: 07/01/24 21:04> ROS ED ROS Narrative Constitutional: Negative for fever, chills, weight loss, weakness Eyes: Negative for vision loss, vision change, double vision ENT: Negative for any sore throat, ear pain, congestion Cardiovascular: Negative for any chest pain, tightness, palpitations Respiratory: Negative for any cough, sputum production, hemoptysis, dyspnea, dyspnea on exertion, orthopnea Gastrointestinal: Negative for any abdominal pain, nausea, vomiting, diarrhea, constipation, blood in stool, blood in vomit : Negative for any urinary frequency, dysuria, retention, blood in urine Muscle skeletal: Negative for any neck pain, back pain. Positive right thumb pain Neurological: Negative for any headache, syncope, dizziness. Skin: Negative for any rashes, itching, abrasions, lacerations. Positive for swelling, erythema to the right thumb Psychiatric: Negative for any depression, anxiety, stress, suicidal ideation, homicidal ideation Hematologic: Negative for any excessive bruising, easy bleeding EXAM <Dr. Jeffery Villafuerte DO - Last Filed: 07/01/24 21:14> Physical Exam Const Vital Signs: 07/01/24 20:33 Temperature 97.2 F L Temperature Source Temporal Pulse Rate 85 Respiratory Rate 18 Blood Pressure 112/67 Blood Pressure Mean 82 Pulse Ox 97 Oxygen Delivery Method Room Air <Manoj Ramon OIL FIELD ROUSTABOUT-C - Last Filed: 07/01/24 21:04> Physical Exam Narrative Exam Narrative: Vital signs reviewed. Extremities: No peripheral edema, no signs of gross trauma or deformity. Activefull range of motion of all extremities. Patient does have what appears to be asmall little abscess to the pad of the right thumb. There is no foreign body noted on initial evaluation. Patient has no patient is full range of motion. +2 radial pulse Neuro: Cranial nerves II through XII intact, no focal neurological deficits. Skin: Clean dry and intact with no rash, purpura, petechiae, vesicles or pustules. Backs/flank: No CVA tenderness, no midline spinal tenderness, no deformity. Psych: Normal mood and affect. No SI, HI or acute psychosis. [facility] <Dr. Jeffery Villafuerte DO - Last Filed: 07/01/24 21:14> [facility] Narrative Medical decision making narrative: I have personally performed a face to face assessment of the patient and have reviewed the WOLF Note. I performed a substantive portion of the visit including all aspects of the following. My alarcon findings include: History: Patient presents with redness and swelling to the pad of the right thumb. Patient states he had a metallic splinter into his thumb a couple days ago. Patient states he was able to pull out some of the metal fragment. Patient states he has some increased redness and swelling over the area. Patient denies any paresthesias or weakness. Patient denies any fevers or chills. Exam: Vital signs are stable. Patient is afebrile. Patient is in no acute distress. Skin is warm and dry. There is some erythema and edema over the volar aspect of the proximal fortune of the distal phalanx of the right thumb. There is minimal drainage. There is no foreign body noted. There is good rangeof motion of the IP and MP joints of the right thumb. Sensation was intact to light touch in all digits. Capillary refill was less than 2 seconds in all digits. Medical Decision Making: Differential diagnosis includes abscess, retained foreign body, and cellulitis. X-rays of the right thumb will be obtained to assess for retained foreign body. Patient was given a dose of Keflex. X-rays of the right thumb were obtained. There are 3 views. On my independent interpretation, there is no radiopaque foreign body. There is no acute fracture. There is some soft tissue swelling noted. Radiologist also interpreted the x-rays and agrees. The pad of the right thumb was cleaned with chlorhexidine. A small incision wasmade using the tip of a 18-gauge needle. This was done by the WOLF under my supervision. Patient was given a prescription for Keflex. Patient was instructed to use warm compresses to the area. Patient was instructed to follow-up with his primary care physician in 5 to 7 days. Patient understood and was agreeable with the plan. All questions were answered. <LUANNE Delacruz - Last Filed: 07/01/24 21:04> [facility] Treatment and Re-Evaluation Narrative: Differential diagnosis includes however is not limited to: Foreign body, abscessformation, cellulitis Patient appears generally well, vital signs are stable, patient is nontoxic-appearing. Presenting to the emergency department with complaints of concern for foreign body, infection to the right thumb. X-rays will be obtained. All radiologic examinations were read, reviewed by the emergency department attending. From these reads, a plan of care will be put in place. Patient's x-ray showed no acute foreign body. I was able to cleanse the area with alcohol. I was able to use a 18-gauge needle, was able to take off the roof of the swelling, where it came to ahead. I was able to get small amount ofyellow discharge. Patient will keep using warm compresses, soapy water for cleansing. Patient placed on Keflex 4 times a day for 10 days. Struck to return for any worsening symptoms. Stable for discharge. Discharge Plan Triage Chief Complaint: Upper Extremity Injury ED Midlevel Provider: Manoj Ramon ED Provider: Jeffery Villafuerte Dx/Rx/DC Orders Clinical Impression: Cellulitis of right thumb Instructions: ED Cellulitis Prescriptions: New cephalexin 500 mg capsule 500 mg PO Q6 Qty: 40 0RF No Action NK Primary Care Provider: Care Physician,No Primary Referrals: Care Physician,No Primary [Primary Care Provider] - Activity Restrictions/Additional Instructions: Please ensure use of warm compress. Clean with soapy water. The antibiotics are taken until the bottle is empty. Return for any worsening redness, fever chills nausea or vomiting. Print Language: Urdu Disposition Disposition: Home, Self Care What to do if you have Problems For any increased pain, shortness of breath, bleeding, nausea or vomiting, chestpain, or any unexpected problems, contact your Primary Care Provider. Call [facility] ([phone]) or report to the closest Emergency Room. Call 911 if necessary. 07/01/242114 <Electronically signed by Jeffery Villafuerte DO> Cosigner Signature (if applicable): 07/01/242103 <Electronically signed by Manoj STROUD> CC: No Primary Care Physician ~ Signed [facility] Work Phone: [phone] 116-639903-09-2024 Discharge summary Author Marco Lemus [facility] June 24, 2023 11:59pm Note Date/Time June 24, 2023 10:0 1pm [facility] Medical Records Department [address] [place] [address] Emergency Department Summary 06/24/23 MR#: [id number] Acct: [id number] Name: MITCHELL CHAIREZ Rep #:[id number] : 2000 22 From: Marco Lemus MD PCP: Care Physician,No Primary Status :REG ER Location: ED HPI History of Present Illness Chief Complaint: Fever Detail of Chief Complaint: Temperature 104.3 ?F Informant: patient and spouse/S.O. Onset/Context/Timing Onset: Days (Onset of illness 2 to 3 days ago) Context: Sudden Onset Timing: Continuous and Waxes and wanes Quality: Flulike symptoms Location: Generalized and respiratory Current Severity: Mild Maximum Severity: Moderate Worsened by: Nothing Relieved by: Nothing Associated Symptoms Associated Symptoms: Per HPI narrative Narrative Narrative: Patient is a 22-year-old male. He does vape. He presents because of a temperature of 104.3 ?F at home. Axillary temperature was 101.9. Significant other suggested he come in. He does complain of mild headache. Denies photophobia, neck pain or neck stiffness. He does endorse mild congestion initially with rhinorrhea. He states he does have a sore throat when he coughs. His cough is nonproductive. He does endorse myalgias and arthralgias. He has had essentially no intake for the past 24 to 48 hours. He does endorse thirst, dry mouth and lightheadedness when he stands. Child is ill at home and tested positive for influenza type B. He does endorse nausea without vomiting or diarrhea. He denies abdominal pain. He denies rash. Prior similar symptoms: No Recent Illness/Hospitalization: No PFSH PFSH Medical History no medical history no medical history Home Medications NK 09/27/20 [History Last Taken Unknown] Allergy/AdvReac Type Severity Reaction Status Date / Time No Known Allergies Allergy Verified 06/24/23 21:47 Surgical History History of appendectomy Social History (Updated 06/24/23 @ 21:[address] Marco Lemus MD) household members: spouse and children Smoking Status: Current every day smoker tobacco type: cigarettes Electronic Cigarette Use: with nicotine substance use type: does not use ROS ROS ED Constitutional Constitutional ED: Reports chills, fever(s) and sweats; Denies subjective or weight loss Eyes Eyes: Denies blurry vision, change in vision or diplopia ENT ENT ED: Reports rhinorrhea and sore throat; Denies ear pain Cardiovascular Cardiovascular: Denies chest pain, orthopnea, palpitations or paroxysmal nocturnal dyspnea Respiratory/Chest Respiratory/Chest: Reports cough; Denies dyspnea, dyspnea on exertion, orthopnea, paroxysmal nocturnal dyspnea or sputum Gastrointestinal Gastrointestinal: Reports nausea; Denies abdominal pain, diarrhea, melena or vomiting Genitourinary Genitourinary ED: Reports other Details: Patient endorses decreased urine output. ; Denies dysuria, hematuria or urinary frequency Musculoskeletal Musculoskeletal: Reports arthralgias and myalgias; Denies back pain or neck pain Integumentary Denies rash Neurologic Neurologic: Reports headache(s) and weakness; Denies paresthesias Endocrine Endocrinology: Denies cold intolerance or heat intolerance Hematologic/Lymphatic Hematologic/Lymphatic: Reports systems reviewed and no addt'l complaints, exceptas documented EXAM Physical Exam Const Vital Signs: 06/24/23 21:47 06/24/23 21:54 06/24/23 23:00 Temperature 101.9 F H 100.9 F H Temperature Source Oral Oral Pulse Rate 102 H Respiratory Rate 22 H Respiratory Effort Normal Respiratory Pattern Normal Blood Pressure 104/79 Blood Pressure Mean 87 Pulse Ox 98 Oxygen Delivery Method Room Air Positive well nourished and well developed Constitutional Narrative: Patient appears ill but not toxic. General Appearance ED: well developed and pallor; Negative for cyanotic or diaphoretic HEENT Reports dry mucous membranes HEENT Narrative: Head is atraumatic and normocephalic. Ears normal. TMs normal. Nares patent with mild clear discharge noted. Posterior pharynx out erythema exudate. Uvulais midline. Mouth ED: Yes dry mucous membranes Mouth: dry mucous membranes Eyes PERRL and EOMs intact bilaterally General Eye ED: Negative for pale conjunctiva or scleral icterus Neck no lymphadenopathy, supple and no JVD Chest Wall inspection of chest normal and palpation of chest normal Resp normal respiratory effort and clear to auscultation bilaterally Cardio regular rhythm, S1 normal heart sound, S2 normal heart sound and no murmurs Rate: tachycardic GI normal to inspection, nondistended, normoactive bowel sounds, non-tender, non-distended and no masses; Negative for hepatosplenomegaly Back/Spine no CVA tenderness Extremity normal to inspection Extremity Narrative: There is no clubbing or cyanosis noted. General Extremety ED: Negative for edema or tenderness General Extremity: Negative for edema Neuro oriented x3, CN's II-XII intact bilaterally and no sensory deficits noted Sensorium / Orientation: alert Psych mental status grossly normal Skin no rashes or lesions noted, no wounds and skin turgor normal General Skin Exam: pallor; Negative for jaundice MDM MDM MDM Narrative Medical decision making narrative: Differential diagnosis is viral versus bacterial infection. 104.3 degree temperature and child that tested positive for influenza type B patient has influenza type B. Clinically he is dehydrated. Because he is nauseous will administer Zofran. Ibuprofen for his myalgias arthralgias and temperature of 101.9. He states he took Tylenol at approximately 1900. He does not have ibuprofen or Aleve at home. Since patient pulse ox is normal and there is no abnormal auscultatory findings oscitation over the chest x-ray was not obtained. In my opinion there is no need for rapid antigen since family member was testedand is positive for influenza type B. History & Record Review Additional record(s) reviewed:: Prior ED visit (Prior record in 2020 for minor respiratory complaint.) Rhythm Strip Rhythm Strip: Sinus Tach Rate: 105 Ectopy: None Treatment and Re-Evaluation :: Patient was reassessed at 2345. He feels better. He still has not urinated. Will have patient hydrate orally. Since he does not have a physician he was referred to Dr. Kaur. Discharge Plan Triage Chief Complaint: Fever ED Provider: Marco Lemus Dx/Rx/DC Orders Clinical Impression: Acute dehydration, Fever and chills, Type B influenza, Sinus tachycardia Instructions: ED Influenza (Adult) Prescriptions: No Action NK Primary Care Provider: Care Physician,No Primary Referrals: Roman Hatfield MD [Med Staff - [employer]] - Ladi Kaur DO [Med Staff - Active Staff] - 1 Week if not improving Disposition Disposition: Home, Self Care What to do if you have Problems For any increased pain, shortness of breath, bleeding, nausea or vomiting, chestpain, or any unexpected problems, contact your Primary Care Provider. Call [facility] ([phone]) or report to the closest Emergency Room. Call 911 if necessary. 06/24/23 [id number] <Electronically signed by Marco Lemus MD> Cosigner Signature (if applicable): CC: No Primary Care Physician ~ Signed [facility] Work Phone: Discharge summary Author Seamus [facility] Note Date/Time July 04, 2024 12: 36pm [facility] Medical Records Department [address] [place] [address] Emergency Department Summary 07/04/24 MR#: [id number] Acct: [id number] Name: MITCHELL CHAIREZ Rep #:[id number] : 2000 23 From: Seamus Ansari DO PCP: Care Physician,No Primary Status :REG ER Location: ED HPI History of Present Illness Chief Complaint: General Illness Narrative Narrative: Patient is a 23-year-old male with a past medical history of ADHD who presented to the emergency department the chief complaint of nausea vomiting diarrhea. Patient states that his symptoms started yesterday and he was up all night with vomiting and diarrhea. He states that his kids have been ill recently. Patientstates that he has had his appendix taken out but denies any other surgeries. Denies abdominal pain. Patient states that he needs a work note [facility] Medical History ADHD Home Medications ?Medication ?Instructions ?Recorded ?Last Taken ?Type cephalexin 500 mg capsule 500 mg PO Q6 #40 CAPSULES Unknown Rx dicyclomine 20 mg tablet 20 mg PO TID PRN abdominal p ain 07/04/24 Unknown Rx #20 tabs ondansetron 4 mg disintegrating 4 mg PO Q6H PRN nausea and 07/04/24 Unknown Rx tablet vomiting #20 tabs Allergy/AdvReac Type Severity Reaction Status Date / Time No Known Allergies Allergy Verified 07/04/24 09:48 Surgical History History of appendectomy Social History household members: spouse and children Smoking Status: Current every day smoker tobacco type: e-cigarettes Electronic Cigarette Use: with nicotine substance use type: does not use ROS ROS ED ROS Narrative Constitutional: Denies any fevers, chills, headaches Eyes: Denies change in vision double vision blurry vision Cardiovascular: Denies chest pain or palpitations Respiratory: Denies coughing wheezing shortness of breath Abdomen: Complains of nausea vomiting diarrhea as noted above denies abdominal pain Neurological: Denies any numbness, discontinuing Musculoskeletal: Denies back pain Skin: Denies rashes or lesions EXAM Physical Exam Narrative Exam Narrative: General: Patient lying in bed rest comfortably. In acute distress Head: Atraumatic, normocephalic Eyes: PERRL bilateral, EOMI bilateral, no conjunctival injection noted Neck: Soft, supple, trachea midline Cardiovascular: Regular rate and rhythm no murmurs gallops rubs noted Respiratory: Clear to auscultation bilaterally Abdomen: Soft, nondistended, nontender to palpation Neurological: Patient follow commands knew that he was at [facility] year is 2024 Skin: Warm, dry, intact Const Vital Signs: 07/04/24 09:48 07/04/24 10:47 07/04/24 11:47 Temperature 98.9 F Temperature Source Oral Pulse Rate 74 78 Respiratory Rate 18 16 Respiratory Effort Normal Respiratory Pattern Normal Blood Pressure 102/57 L 118/78 Blood Pressure Mean 72 91 Pulse Ox 98 98 Oxygen Delivery Method Room Air Room Air MDM MDM MDM Narrative Medical decision making narrative: Patient is a 23-year-old male who presents to the emerged part with chief complaint nausea vomiting diarrhea since yesterday. On the differential diagnosis includes but not limited to COVID, flu, viral gastroenteritis secondary to other viral illness. Once workup is obtained reviewed he will be reevaluated. Patient be given ODT Zofran. Patient tested negative for COVID flu RSV. On reevaluation the patient he is feeling much better would like to go home at this point time. Patient will be provided work note, prescriptions for Zofran and Bentyl. He is advised to start bland diet and advance as tolerated. He is advised to return with worsening symptoms or concerns. He was given a physicianto follow-up with as well. He is agreeable to plan all question concerns answered he is discharged home in stable condition. Discharge Plan Triage Chief Complaint: General Illness ED Provider: Seamus Ansari Dx/Rx/DC Orders Clinical Impression: Nausea & vomiting, Diarrhea Prescriptions: New ondansetron 4 mg tablet,disintegrating 4 mg PO Q6H PRN (Reason: nausea and vomiting) Qty: 20 0RF dicyclomine 20 mg tablet 20 mg PO TID PRN (Reason: abdominal pain) Qty: 20 0RF No Action cephalexin 500 mg capsule 500 mg PO Q6 Qty: 40 0RF Primary Care Provider: Care Physician,No Primary Referrals: Care Physician,Corina Primary [Primary Care Provider] - Crystal Rodriguez Татьяна, [employer] [[facility]] - Activity Restrictions/Additional Instructions: You tested negative for COVID flu and RSV. Prescriptions were sent to your pharmacy use them as prescribed. Start with a bland diet and advance as tolerated. You likely have a viral illness causing your symptoms. Return with worsening symptoms or concerns otherwise follow-up with the doctor you referred to. Print Language: Urdu Disposition Disposition: Home, Self Care What to do if you have Problems For any increased pain, shortness of breath, bleeding, nausea or vomiting, chestpain, or any unexpected problems, contact your Primary Care Provider. Call [employer] [facility] ([phone]) or report to the closest Emergency Room. Call 911 if necessary. 07/04/24 9065 <Electronically signed by Seamus Ansari DO> Landryigner Signature (if applicable): CC: No Primary Care Physician ~ Signed [facility] Work Phone: Evaluation + Plan note No data available for this section [facility] Evaluation noteNo assessment information available [facility] Work Phone: Evaluation note* Diagnosis Leg pain, bilateral- Primary Pain in limb Unspecified abnormalities of gait and mobility Pain of lower extremity, unspecified laterality Muscle weakness (generalized) [facility] Additional Instructions Please ensure use of warm compress. Clean with soapy water. The antibiotics are taken until the bottle is empty. Return for any worsening redness, fever chills nausea or vomiting.[facility] Work Phone: Hospital Discharge instructions Additional Instructions You tested negative for COVID flu and RSV. Prescriptions were sent to your pharmacy use them as prescribed. Start with a bland diet and advance as tolerated. You likely have a viral illness causing your symptoms. Return with worsening symptoms or concerns otherwise follow-up with the doctor you referred to.[facility] Work Phone: Hospital Discharge instructions No data available for this section [facility] Progress note No data available for this section [facility] Reason for referral (narrative)No reason for referral information availableWTriHealth [facility] Work Phone: Summary Purpose Family History No Family History Records FoundNo Family History Records FoundNo Family History Records FoundNo Family History Records Found No data available for this section No data available for this section No Family History Records FoundNo Family History Records FoundNo Family History Records Found Advance Directives No Advanced Directives Records FoundDocuments on File Type Date Recorded 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 ACP-Advance Directive ACP-Power of Regional Service Manager Latest Code Status on File Code Status Date Activated Date Inactivated Comments Full Code 12/16/2017 11:39 PM 12/18/2017 4:50 PM Advance Directive Response Recorded Date/ Time Living Will No June 24, 2023 9:54pm Power of Regional Service Manager No June 23 9:54pm Advance Directive Response Recorded Date/ Time Living Will No July 01, 2024 8:50pm Power of Regional Service Manager No July 01 8:50pm Advance Directive Response Recorded Date/ Time Living Will No July 01, 2024 8:50pm Power of Regional Service Manager No July 01 8:50pm Living Will No July 04, 2024 10:47am Power of Regional Service Manager No July 04 10:47am Advance Directive Response Recorded Date/ Time Living Will No July 01, 2024 8:50pm Do you have a Healthcare Power of Regional Service Manager? No July 01, 2024 8:50pm Living Will No July 04, 2024 10:47am Do you have a Healthcare Power of Regional Service Manager? No July 04, 2024 10:47am Discharge Instructions * Instructions* Stepan Wallace, - 05/24/2020 Rest. Ice 15 minutes every 4-6 hours. Return if any problems or concerns. * Attachments The following attachments cannot be sent through Care Everywhere. * Back: Strain (Urdu) documented in this encounter Assessments Diagnosis Back strain, initial encounter- Primary Chief Complaint and Reason for Visit Chief Complaint FLU SX Chief Complaint Admit Date hand injury July 01, 2024 8:3 1pm Chief Complaint Admit Date hand injury July 01, 2024 8:3 1pm general illness July 04, 2024 9:4 7am Chief Complaint Admit Date hand injury July 01, 2024 8:3 1pm general illness July 04, 2024 9:4 7am PAIN October 25, 2024 1:01 pm Additional Source Comments (unrecognized sect ion and content) No Status Records FoundNo Status Records FoundNo Status Records FoundNo Status Records FoundNo Status Records FoundNo Status Records FoundNo Status Records Found INFORMATION SOURCE (unrecogn ized section and content) DATE CREATED AUTHOR [facility]24/2019 [facility] DATE CREATED AUTHOR AUTHOR'S ORGANIZ ATION 06/01/2019 [facility] DATE CREATED AUTHOR AUTHOR'S ORGANIZ ATION 06/21/2019 [facility] DATE CREATED AUTHOR AUTHOR'S ORGANIZ ATION 05/27/2020 [facility] DATE CREATED AUTHOR AUTHOR'S ORGANIZ ATION 10/30/2024 [facility] DATE CREATED AUTHOR AUTHOR'S ORGANIZ ATION 11/02/2024 [facility] DATE CREATED AUTHOR AUTHOR'S ORGANIZ ATION 11/04/2024 [facility] Reason for Visit (unrecogniz ed section and content) Reason Comments Shoulder Pain right Hand Pain right Reason Comments Pain Bilateral lower legs x1 week, L worse, denies injury Ordered Prescriptions (unrec ognized section and content) Prescription Sig Dispensed Refills Start Date End Da te ibuprofen (ADVIL;MOTRIN) 600 MG tablet Take 1 tablet by mouth 3 times daily as needed for Pain 15 tablet 0 05/24/2020 Care Teams (unrecognized sec tion and content) Team Status: Active Member Role Status Dates No Primary Care Physician Primary Care Provider Active Team Status: Inactive Member Role Status Dates Dr. Marco Lemus MD Emergency Provider Active No Primary Care Physician Primary Care Provider Active Team Status: Inactive Member Role Status Dates No Primary Care Physician Primary Care Provider Active Start: July 01, 2024 End: July 01, 2024 Dr. Jeffery Villafuerte DO Referring Provider Active Start: July 01, 2024 End: July 01, 2024 Dr. Jeffery Villafuerte DO Emergency Provider Active Start: July 01, 2024 End: July 01, 2024 Team Status: Inactive Member Role Status Dates No Primary Care Physician Primary Care Provider Active Start: July 04, 2024 End: July 04, 2024 Dr. Seamus Ansari DO Emergency Provider Active Start: July 04, 2024 End: July 04, 2024 Team Status: Active Member Role/Relationship Status Dates No Primary Care Physician Primary Care Provider Active Team Status: Inactive Member Role/Relationship Status Dates No Primary Care Physician Primary Care Provider Active Start: July 01, 2024 End: July 01, 2024 Dr. Jeffery Villafuerte DO Attending Provider Active Start: July 01, 2024 End: July 01, 2024 Dr. Jeffery Villafuerte DO Referring Provider Active Start: July 01, 2024 End: July 01, 2024 Dr. Jeffery Villafuerte DO Emergency Provider Active Start: July 01, 2024 End: July 01, 2024 Team Status: Inactive Member Role/Relationship Status Dates No Primary Care Physician Primary Care Provider Active Start: July 04, 2024 End: July 04, 2024 Dr. Seamus Ansari DO Attending Provider Active Start: July 04, 2024 End: July 04, 2024 Dr. Seamus Ansari DO Emergency Provider Active Start: July 04, 2024 End: July 04, 2024 Team Status: Inactive Member Role/Relationship Status Dates No Primary Care Physician Primary Care Provider Active Start: October 25, 2024 End: October 25, 2024 Ed Physician Provider Emergency Provider Active Start: October 25, 2024 End: October 25, 2024 Goals (unrecognized section and content) Goals may be documented in a n alternate sectionGoals may be documented in an alternate sectionGoals may be documented in an alternate sectionGoals may be documented in an alternate section No data available for this section No data available for this section Source Comments (unrecognize d section and content) In the event this informatio n is protected by the Federal Confidentiality of Alcohol and Drug Abuse Patient Records regulations: The Federal rules restrict any use of the information to criminally investigate or prosecute any alcohol or drug abuse patient.[facility] FOR RECORDS PERTAINING TO PATIENTS WHO ARE [...] BE BASED ON THE PRIMARY CLINICAL RECORDS. [employer] [facility]. provides no warranty or guarantee of the accuracy or completeness of information in this document.
--- NOTE | 2025-01-08 05:38 | EX.ED.DYSGE1 ---
HPI History of Present Illness Chief Complaint: Sore Throat Informant: patient Narrative Narrative: Patient is a 24-year-old male with past medical history of ADHD. He states that over the last 24 hours he has felt pain and swelling in the right side of his neck. He states that he feels like it is making it difficult for him to swallow. He states when further asked about this that he is able to swallow it is just painful to do so. He denies any known sick contacts. He states that a few years ago he had a foreign body in his throat. He states that this sensation feels similar and with concern for this he presents for evaluation. [facility] Medical History ADHD Home Medications ?Medication ?Instructions ?Recorded ?Last Taken ?Type NK 01/08/25 Unknown History Allergy/AdvReac Type Severity Reaction Status Date / Time bee pollen Allergy Mild Swelling Verified 01/08/25 03:32 Surgical History History of appendectomy Social History household members: spouse and children Smoking Status: Current every day smoker tobacco type: e-cigarettes Electronic Cigarette Use: with nicotine substance use type: does not use ROS ROS ED Constitutional Constitutional ED: Denies chills or fever(s) Eyes Eyes: Denies change in vision ENT ENT ED: Reports sore throat; Denies rhinorrhea Cardiovascular Cardiovascular: Denies chest pain Respiratory/Chest Respiratory/Chest: Denies cough or dyspnea Gastrointestinal Gastrointestinal: Denies abdominal pain, diarrhea, nausea or vomiting Musculoskeletal Musculoskeletal: Reports neck pain Integumentary Denies rash Neurologic Neurologic: Denies headache(s) Hematologic/Lymphatic Hematologic/Lymphatic: Denies easy bleeding or easy bruising Allergic/Immunologic Allergic/Immunologic ED: Denies mouth swelling or tongue swelling EXAM Physical Exam Const Vital Signs: 01/08/25 03:32 01/08/25 05:47 Temperature 98.2 F 97.7 F L Temperature Source Oral Pulse Rate 54 L 59 L Respiratory Rate 16 18 Blood Pressure 116/74 107/81 H Blood Pressure Mean 88 89 Pulse Ox 99 98 Positive well nourished and well developed General Appearance ED: well developed; Negative for pallor HEENT HEENT Narrative: Bilateral TMs are retracted but show no secondary changes to suggest infection Nasal mucosa is hyperemic and boggy No tongue or lip swelling no oral lesions no airway edema or compromise There is cobblestoning the posterior pharynx consistent with sinus drainage No tonsillar hypertrophy. No exudate. No trismus. No change in voice. Eyes PERRL and EOMs intact bilaterally Neck supple Neck Narrative: There is tender right anterior cervical lymphadenopathy noted however there is no overlying erythema or warmth. Resp normal respiratory effort and clear to auscultation bilaterally Cardio regular rate and regular rhythm Extremity normal to inspection Neuro oriented x3, CN's II-XII intact bilaterally and no sensory deficits noted Sensorium / Orientation: alert Motor Exam: strength 5/5 throughout Psych Mood & Affect: anxious Skin no rashes or lesions noted and no wounds General Skin Exam: Negative for jaundice or pallor MDM MDM MDM Narrative Medical decision making narrative: Patient arrived the ER with stable vitals. He reported painful swallowing and swelling to the right side of his neck. Physical exam is consistent with pharyngitis from a viral source as there is cobblestoning in the posterior pharynx and increased/swollen nasal mucosa. In order to rule out epiglottitis versus esophageal perforation versus retained foreign body I did elect to perform a soft tissue neck series. This revealed no acute findings. Physical exam did not reveal signs of strep throat but in order to check for this a rapid swab was obtained. The test was negative which correlates with his physical exam. He does not have findings for retropharyngeal or peritonsillar abscess either and therefore there is no need for a CT of the neck. Also without overlying erythema or warmth or fever I have low concern that this is an infected lymph node and therefore feel no need for blood work or further imaging. The patient was informed of his negative workup and that the lymph node should resolve over time as the virus run its course. However at this time without signs of abscess obstruction or perforation or retained foreign body there is no need for further evaluation in the ER and he is otherwise safe for discharge. History & Record Review Discussion w/independent historian: Patient and Significant other Radiography Diagnostic Testing: Clinical Impression(s) from Imaging Studies Soft Tissue Neck X-Ray 01/08/25 04:00 IMPRESSION: Negative neck for soft tissues. Reading Location: [facility] Soft tissue neck x-ray as interpreted by the emergency medicine physician reveals no free air swelling of the epiglottis or retained foreign body Discharge Plan Triage Chief Complaint: Sore Throat ED Provider: Jameson Wallis Dx/Rx/DC Orders Clinical Impression: Lymphadenopathy, cervical, Viral syndrome, ADHD Instructions: Lymphadenopathy, ED Viral Syndrome (Adult) Prescriptions: No Action NK Primary Care Provider: Care Physician,No Primary Referrals: Manoj May MD [Med Staff - Active Staff, Family Practice] Care Physician,No Primary [Primary Care Provider, Medical] Activity Restrictions/Additional Instructions: Your strep swab was negative and your x-ray did not reveal any obvious signs of infection or foreign body. Your discomfort is most likely related to a swollen lymph node from a virus that you picked up. The virus will resolve spontaneously but will typically remain in place for approximately 2 weeks. The lymph node could remain swollen during this entire time. If you spike a fever or noticed there is surrounding redness over top of lymph node then the lymph node may be becoming infected. If this occurs please return to the ER for repeat evaluation Print Language: Kazakh Disposition Disposition: Home, Self Care Discharge Date/Time: 01/08/25 05:49
[2025-01-08 05:47] VITALS: BP 107/81; PULSE 59; RESP 18; TEMP 36.5; O2SAT 98
== END 2025-01-08 05:49 | disposition home or self-care (01) ==
PROVIDERS: Emergency Provider Emergency Medicine; Visit Provider Emergency Medicine
DX: B34.9 Viral infection, unspecified (principal); F90.9 Attention-deficit hyperactivity disorder, unspecified type; R59.0 Localized enlarged lymph nodes; F17.290 Nicotine dependence, other tobacco product, uncomplicated
CPT/HCPCS: 70360; 87651; 99283